=== PATIENT | male | born 1965 | race Caucasian/White ===

== ENCOUNTER 2019-11-17 19:01 | Emergency (ER) | payer BC, SELFPAY ==
[2019-11-17 19:11] VITALS: BP 167/80; PULSE 81; RESP 16; TEMP 36.9; O2SAT 99
--- NOTE | 2019-11-17 19:24 | ED.SKABFB ---
HPI - Skin/Abscess/Foreign Bdy General Chief complaint: Skin/Abscess/Foreign Body Stated complaint: poison dionte Time Seen by Provider: 11/17/19 19:13 Source: patient and RN notes reviewed Mode of arrival: ambulatory Limitations: no limitations History of Present Illness HPI narrative: Patient presents today complaining of a 10-day history of facial rash that is pruritic. Reports the rash continues to worsen. Denies pain. He does state he was working with poison dionte a few days prior to onset, but otherwise does not know of any irritants. He has been using calamine lotion with some relief. MD complaint: rash Related Data Allergies Allergy/AdvReac Type Severity Reaction Status Date / Time No Known Allergies Allergy Mild Verified 11/17/19 19:03 Review of Systems Review of Systems: Narrative: CONSTITUTIONAL: Denies body aches, fever, chills, or sweats. EYES: Denies visual changes, redness, or discharge. ENT: Denies rhinorrhea, congestion, sore throat, or otalgia. CARDIOVASCULAR: Denies chest pain, palpitations, or edema. RESPIRATORY: Denies cough or dyspnea. GASTROINTESTINAL: Denies abdominal pain, nausea, vomiting, or diarrhea. GENITOURINARY: Denies dysuria or hematuria. SKIN: Denies wounds.+ Facial rash MUSCULOSKELETAL: Denies back pain, joint pain, or myalgia. NEUROLOGIC: Denies headache, numbness, tingling, or weakness. PSYCH: Denies depression or anxiety. PMFSH Social History Social History Smoking status: Light tobacco smoker Second hand tobacco smoke exposure: No Alcohol intake: current Gender identity (if verbalized by the patient): Male Comments At time of signature, I have reviewed and agree with nursing past medical, surgical, social and family history unless otherwise noted. Please see nursing chart for further information. There is no relevant family history pertinent to the presenting complaint Exam Narrative: Exam Narrative: GENERAL: Well-appearing, well-nourished, and in no acute distress. HEAD: Normocephalic, atraumatic. EYES: EOMI. No redness or drainage. Conjunctivae normal. ENT: Mucous membranes pink and moist. NECK: Normal AROM. CHEST: No respiratory distress. EXTREMITIES: Normal range of motion. No edema. SKIN: Warm, dry. Capillary refill normal. Normal skin turgor. + Erythematous papular rash to the left cheek and forehead. No induration, drainage, fluctuance. NEURO: No focal deficits. Alert and oriented x3. Gait steady. PSYCH: Normal affect. No signs of depression or anxiety. Course Vital Signs Vital signs: Vital Signs Temperature 98.4 F 11/17/19 19:11 Pulse Rate 81 11/17/19 19:11 Respiratory Rate 16 11/17/19 19:11 Blood Pressure 167/80 H 11/17/19 19:11 Pulse Oximetry 99 11/17/19 19:11 Temperature 98.4 F 11/17/19 19:11 Pulse Rate 81 11/17/19 19:11 Respiratory Rate 16 11/17/19 19:11 Blood Pressure 167/80 H 11/17/19 19:11 Pulse Oximetry 99 11/17/19 19:11 Reviewed. Pt has been instructed to follow up with his PCP regarding his elevated blood pressure today. MDM - Skin/Abscess/Foreign Bdy Differential Diagnosis Differential diagnosis: Likely abscess of skin or subcutaneous tissue, urticaria, herpes zoster, cellulitis, eczema, insect bites, impetigo and contact dermatitis Critical Care Time Critical Care Time Critical Care Time: No Discharge Plan Discharge Clinical Impression: Contact dermatitis Qualifiers: Contact dermatitis type: unspecified Contact dermatitis trigger: unspecified trigger Qualified Code(s): L25.9 - Unspecified contact dermatitis, unspecified cause Patient Disposition: Home, Self-Care Condition: Stable Instructions: Contact Dermatitis (DC) Additional Instructions: Please take the prednisone as directed. You may also try an antihistamine such as Claritin, Fang, Zyrtec, or Benadryl to help with the itching. Follow-up with your PCP or last picker in 1 week if symptoms are not improving. Your blood p
== END 2019-11-17 19:32 | disposition home or self-care (01) ==
PROVIDERS: Emergency Provider Nurse Practitioner; PCP Internal Medicine
DX: L25.9 Unspecified contact dermatitis, unspecified cause (principal); F17.200 Nicotine dependence, unspecified, uncomplicated
CPT/HCPCS: 99213; G0463

== ENCOUNTER 2021-04-16 17:44 | Emergency (ER) | payer BC, SELFPAY ==
--- NOTE | ~2021-04-16 | XR_ITS ---
EXAMINATION: XR chest 2V EXAM DATE: 04/16/2021 18:09 INDICATION: Cough and shortness of breath. TECHNIQUE: Frontal and lateral projections of the chest obtained and reviewed. There is no prior shea dy for comparison. FINDINGS: The lungs are clear. There are no pleural effusions. The cardiomediastinal silhouette is within normal limits. There is no pneumothorax suspected. The bones and soft tissues are unremarkab le. IMPRESSION: No acute cardiopulmonary findings. Reviewed, dictated and finalized at location A. INUOUS LOFT OPERATOR
--- NOTE | 2021-04-16 17:49 | ED.URI ---
HPI - URI/Sore Throat General Chief Complaint: Upper Respiratory Infection Stated Complaint: Cough,Fever,Shortness of Breath Time Seen by Provider: 04/16/21 17:49 Source: patient, RN notes reviewed and old records reviewed Mode of arrival: ambulatory Limitations: no limitations History of Present Illness HPI Narrative: 55-year-old male presents to the [facility] with with complaints of cough, fever, [id number] shortness of breath. Symptoms since Sunday, 4 days ago Patient reports that he is Covid vaccinated. Has tried [id number] products with no relief. MD elicited complaint: fever and cough Related Data Allergies Allergy/AdvReac Type Severity Reaction Status Date / Time No Known Allergies Allergy Mild Verified 04/16/21 17:52 Review of Systems Review of Systems: All systems reviewed & are unremarkable except as noted in HPI and below Constitutional: Constitutional: Reports as per HPI and Reports fever(s) Eyes: Eyes: Reports no additional eye complaints, Denies change in vision and Denies photophobia ENT: Reports system reviewed and no additional complaints, except as documented Cardiovascular: Cardiovascular: Reports no additional cardiovascular complaints and Denies chest pain Respiratory: Respiratory: Reports as per HPI, Reports cough and Reports dyspnea Gastrointestinal: Gastrointestinal: Reports no additional gastrointestinal complaints, Denies abdominal pain, Denies nausea and Denies vomiting Musculoskeletal: Musculoskeletal: Reports as per HPI and Reports myalgias Integumentary/Breasts: Skin/Breast: Reports system reviewed and no additional complaints, except as docu Neurologic: Reports system reviewed and no additional complaints, except as documented Psychiatric: Psychiatric: Reports no additional psychiatric complaints Allergic/Immunologic: Allergic/Immunologic: Reports no additional allergic/immunologic complaints [facility] Past Medical History Medical History (Updated 04/16/21 @ 18:54 by Jennifer Salazar) Hyperglycemia Hyperlipidemia Social History Social History Years smoked: 30 Smoking status: Former smoker Tobacco type: cigars Second hand tobacco smoke exposure: No Smoking end date: 08/06/19 Alcohol intake: current Gender identity (if verbalized by the patient): Male Comments At the time of my signature, I reviewed and agree with the nursing past medical, surgical, social, and family history. There is no relevant family history pertinent to the patient complaint. Exam Const: General: no acute distress, alert and ill appearing acutely Nutritional Appearance: well nourished and obese Orientation/consciousness: patient oriented x3 Limitations: no limitations HENMT: Head: normal to inspection Ears: external ears normal, TM's normal bilaterally and EAC's normal General nose exam: Normal nasal mucous membranes and turbinates present and Nasal discharge present clear and mucoid Face and sinus: normal facial exam Mouth: Yes Normal oral and palatal mucosa present Throat: posterior oropharynx normal and uvula midline Eyes: Conjunctivae: conjunctivae normal Pupils: Equal, round and reactive pupils present Neck: Neck: normal visual inspection, no lymphadenopathy and no meningeal signs Chest: Chest palpation & inspection: normal inspection of the chest Resp: Effort & Inspection: normal respiratory effort and no use of accessory muscles Auscultation: no crackles, no rales, no rhonchi, no wheezes and diminished lung sounds bilateral Cardio: Rate: regular rate Rhythm: regular rhythm GI: GI Palp: Yes Soft to palpation and No Tenderness to palpation present (GI) Back/Spine/Pelvis: Back: no CVA tenderness Skin: General skin exam: normal color Rashes: no rashes Wounds: no wounds Neuro: General: patient oriented x3, moves all extremities, no meningeal signs and no focal motor deficits Speech: normal speech Gait exam (Neuro):
[2021-04-16 17:55] VITALS: BP 162/87; PULSE 89; RESP 16; TEMP 38.2; O2SAT 100
[2021-04-16 18:10] VITALS: PULSE 89; RESP 20; O2SAT 100
[2021-04-16 18:11] VITALS: TEMP 38.2
[2021-04-16] MEDS: ALBUTEROL SULFATE NEB 2.5 MG/3 ML INH INHALATION (18:11)
[2021-04-16] MEDS: ACETAMINOPHEN 500 MG TABLET 1000 MG PO (18:11)
[2021-04-16] MEDS: IPRATROPIUM BR 0.02% INH SOLN 0.5 MG/2.5 ML VIAL INHALATION (18:11)
== END 2021-04-16 19:06 | disposition home or self-care (01) ==
PROVIDERS: Emergency Provider Nurse Practitioner; PCP Internal Medicine
DX: U07.1 COVID-19 (principal); Z87.891 Personal history of nicotine dependence; E78.5 Hyperlipidemia, unspecified
CPT/HCPCS: 71046; 87426; 87804; 94640; 99213; A9270; C9803; G0463

== ENCOUNTER 2021-04-27 19:40 | Emergency (ER) | payer BC, SELFPAY ==
--- NOTE | ~2021-04-27 | XR_ITS ---
EXAMINATION: XR chest 1V portable DATE: 04/27/2021 23:20 INDICATION: Shortness of breath. COVID. TECHNIQUE: frontal view of the chest was obtained. COMPARISON: Chest radiograph dated 04/16/2021 FINDINGS: Peripheral predominant opacities scattered throughout the right lung and along the left lung base. No pleural effusion or pneumothorax. The cardiomediastinal silhouette is normal. IMPRESSION: 1. Peripheral predominant opacities throughout the right lung and at the left lung base with appearan ce consistent with COVID pneumonia. Reviewed, dictated and finalized at location H. UCTION CONSULTANT IMPRESSION: 1. Peripheral predominant opacities throughout the right lung and at the left l heidi base with appearance consistent with COVID pneumonia.
[2021-04-27 19:42] VITALS: BP 162/82; PULSE 88; RESP 18; TEMP 36.7; O2SAT 100
--- NOTE | 2021-04-27 23:08 | ED.SOB ---
HPI - SOB/Dyspnea General Chief Complaint: Shortness of Breath/Dyspnea <Jason Zepeda MD - Last Filed: 04/28/21 00:18> Stated Complaint: dyspnea <Jason Zepeda MD - Last Filed: 04/28/21 00:18> Time Seen by Provider: 04/27/21 23:08 <Jason Zepeda MD - Last Filed: 04/28/21 00:18> Source: patient <Jason Zepeda MD - Last Filed: 04/28/21 00:18> Mode of arrival: ambulatory <Jason Zepeda MD - Last Filed: 04/28/21 00:18> Limitations: no limitations <Jason Zepeda MD - Last Filed: 04/28/21 00:18> History of Present Illness HPI Narrative: Patient is a 35-year-old male complaining of shortness of breath accompanied by body aches, cough, sore throat, fever and chills that started today. Patient states that he tested positive for Covid approximately 10 days ago but his symptoms improved, felt better but has recurred again today. Patient denies any headache, dizziness abdominal pain, nausea, vomiting, diarrhea or rash. <Jason Zepeda MD - Last Filed: 04/28/21 00:18> Related Data Allergies/Adverse Reactions: Allergies Allergy/AdvReac Type Severity Reaction Status Date / Time No Known Allergies Allergy Mild Verified 04/16/21 17:52 <Jason Zepeda MD - Last Filed: 04/28/21 00:18> Review of Systems Review of Systems: All systems reviewed & are unremarkable except as noted in HPI and below <Jason Zepeda MD - Last Filed: 04/28/21 00:18> Constitutional: Constitutional: Denies excessive sweating, Denies fatigue, Denies headache(s), Denies lethargy, Denies malaise, Denies weakness and Denies weight loss <Jason Zepeda MD - Last Filed: 04/28/21 00:18> Eyes: Eyes: Denies blurry vision, Denies change in vision and Denies loss of vision <Jason Zepeda MD - Last Filed: 04/28/21 00:18> ENT: Denies dizziness, Denies ear discharge, Denies headache(s), Denies lip swelling, Denies epistaxis, Denies nasal congestion, Denies neck pain, Denies throat swelling and Denies tongue swelling <Jason Zepeda MD - Last Filed: 04/28/21 00:18> Cardiovascular: Cardiovascular: Denies chest pain, Denies chest pain at rest, Denies chest pain with activity, Denies diaphoresis, Denies rapid heart rate, Denies edema, Denies irregular heart rhythm, Denies lightheadedness and Denies palpitations <Jason Zepeda MD - Last Filed: 04/28/21 00:18> Respiratory: Respiratory: Denies chest congestion and Denies hemoptysis <Jason Zepdea MD - Last Filed: 04/28/21 00:18> Gastrointestinal: Gastrointestinal: Denies abdominal pain, Denies melena, Denies hematochezia, Denies diarrhea, Denies nausea, Denies vomiting and Denies hematemesis <Jason Zepeda MD - Last Filed: 04/28/21 00:18> Musculoskeletal: Musculoskeletal: Denies abnormal gait, Denies deformity, Denies joint swelling, Denies limited range of motion, Denies neck pain and Denies numbness <Jason Zepeda MD - Last Filed: 04/28/21 00:18> Neurologic: Denies Abnormal speech present, Denies abnormal gait, Denies confusion, Denies dizziness, Denies headache(s), Denies focal weakness, Denies loss of vision, Denies numbness, Denies Other visual disturbances, Denies Sensory deficit (Neuro) and Denies weakness <Jason Zepeda MD - Last Filed: 04/28/21 00:18> Psychiatric: Psychiatric: Denies confusion, Denies depression, Denies auditory hallucinations, Denies homicidal ideation and Denies suicidal ideation <Jason Zepeda MD - Last Filed: 04/28/21 00:18> Endocrine: Endocrine: Denies cold intolerance, Denies excessive sweating, Denies fatigue, Denies heat intolerance and Denies palpitations <Jason Zepeda MD - Last Filed: 04/28/21 00:18> Hematologic/Lymphatic: Hematologic/Lymphatic: Denies easy bleeding and Denies easy bruising <Jason Zepeda MD - Last Filed: 04/28/21 00:18> Allergic/Immunologic: Allergic/Immunologic: Denies lip swelling, Denies throat swelling and Denies tongue swelling <R
[2021-04-27 23:16] VITALS: BP 139/85; PULSE 92; RESP 18; O2SAT 97
[2021-04-27 23:56] LABS: Basophils Absolute Auto 0.1 K/mm3 (0.0-0.1); Basophils Percent Auto 0.4 % (0.2-1.2); Eosinophils Absolute Auto 0.3 K/mm3 (0-0.3); Eosinophils Percent Auto 2.9 % (0-4.4); Hematocrit 38.3 % (42.0-52.0); Hemoglobin 12.9 g/dL (14.0-18.0); Immature Granulocyte Absolute 0.14 K/mm3 (0.00-0.031); Immature Granulocyte Percent A 1.2 % (0-0.5); Mean Corpuscular HGB Conc 33.7 g/dl (32-36); Mean Corpuscular Hemoglobin 31.3 pg (26-34); Mean Platelet Volume 9.1 fl (7.4-10.4); Monocytes Percent Auto 9.1 % (2.6-8.5); Neutrophils Absolute Auto 8.3 K/mm3 (1.3-6.7); Neutrophils Percent Auto 72.4 % (45.5-73.1); Platelet Count Result 292 k/mm3 (150-375); Red Blood Count 4.12 M/mm3 (4.6-6.20); Red Cell Distribution Width 13.2 % (11.5-14.5); White Blood Count 11.5 K/mm3 (4.5-10.0)
[2021-04-28 00:06] LABS: Alanine Aminotransferase 91 U/L (4-50); Albumin Level 3.8 g/dL (3.5-5.1); Alkaline Phosphatase 78 U/L (38-126); Anion Gap 7 mmol/L (8-16); Aspartate Amino Transferase 51 U/L (17-59); Bilirubin,Total 0.8 mg/dL (0.2-1.3); Blood Urea Nitrogen 20 mg/dL (9-20); Calcium 9.4 mg/dL (8.4-10.2); Carbon Dioxide 30 mmol/L (22-30); Chloride 99 mmol/L (98-107); Estimated CRCL calculation 73 ml/min; Estimated Glomerular Filt Rate > 60; Glucose 106 mg/dL (65-110); Potassium 4.1 mmol/L (3.4-5.0); Sodium 136 mmol/L (137-145)
[2021-04-28 00:13] VITALS: BP 138/89; PULSE 83; RESP 22; O2SAT 96
== END 2021-04-28 00:53 | disposition home or self-care (01) ==
PROVIDERS: Family Medicine; Emergency Provider Emergency Medicine; PCP Physician Assistant
DX: U07.1 COVID-19 (principal); J12.82 Pneumonia due to coronavirus disease 2019; E78.5 Hyperlipidemia, unspecified; Z87.891 Personal history of nicotine dependence
CPT/HCPCS: 36415; 71045; 80053; 85025; 99283

== ENCOUNTER 2021-12-06 09:13 | Observation (INO) | payer BC, SELFPAY ==
[2021-12-06] VITALS (13 sets, daily range): BP systolic 91–125; BP diastolic 52–63; PULSE 60–93; RESP 14–18; TEMP 36–37.1; O2SAT 97–100; BMI 30.9
--- NOTE | ~2021-12-06 | CT_ITS ---
EXAMINATION: CT abdomen pelvis wo con DATE: 12/06/2021 10:06 INDICATION: Diarrhea. TECHNIQUE: Computed tomography (CT) of the abdomen and pelvis was performed without intravenous contr ast. Automated exposure control and iterative reconstruction technique were employed. The dose-length product was 765.42 mGy-cm. COMPARISON: None. FINDINGS: The visualized portions of the lung bases demonstrate mild atelectasis. No pleural effusion . The heart size is normal. No pericardial effusion. There are coronary artery calcifications. There is a small sliding hiatal hernia. The liver, gallbladder, and spleen and normal. There are calcificat ions in the pancreas, consistent with chronic pancreatitis. The adrenal glands and right kidney are n ormal. There is a 5 mm cyst of left kidney. There is no urolithiasis. There is mild wall thickening o f the majority of the colon with sparing of the hepatic flexure, consistent with colitis. The appendi x is normal. There are no pathologically enlarged lymph nodes. There is no free intraperitoneal fluid . There is a left inguinal hernia containing fat. There is mild thoracolumbar spondylosis. IMPRESSION: 1. Colitis. Reviewed, dictated and finalized at location A. IMPRESSION: 1. Colitis.
--- NOTE | ~2021-12-06 | US_ITS ---
EXAMINATION: US renal BI DATE: 12/06/2021 14:01 INDICATION: Acute renal failure TECHNIQUE: Multiple ultrasound grayscale images of the kidneys were obtained. COMPARISON: CT dated 12/06/2021 FINDINGS: The right kidney measures 11.1 x 5.5 x 5.8 cm. The left kidney measures 10.3 x 6.9 x 7.0 cm. The kidn eys demonstrate normal echogenicity. There is no hydronephrosis in either kidney. No stones identifi ed. There is diffuse relatively uniform smooth wall thickening at the bladder.. IMPRESSION: 1. Normal kidneys without hydronephrosis. 2. Relatively uniform diffuse smooth bladder wall thickening which could be due to incomplete distent ion, cystitis or chronic outlet obstruction from the prostate which is mildly enlarged on CT Reviewed, dictated and finalized at location A. IMPRESSION: 1. Normal kidneys without hydronephrosis. 2. Relatively uniform diffuse smooth bladder wall thickening which could be due to incomplete distention, cystitis or chronic outlet obstruction from the pros kramer which is mildly enlarged on CT
[2021-12-06 09:30] LABS: Hematocrit 41.7 % (42.0-52.0); Hemoglobin 13.9 g/dL (14.0-18.0); Mean Corpuscular HGB Conc 33.3 g/dl (32-36); Mean Corpuscular Hemoglobin 30.3 pg (26-34); Mean Platelet Volume 10.1 fl (7.4-10.4); Platelet Count Result 222 k/mm3 (150-375); Red Blood Count 4.58 M/mm3 (4.6-6.20); Red Cell Distribution Width 13.4 % (11.5-14.5); White Blood Count 11.9 K/mm3 (4.5-10.0)
[2021-12-06] MEDS: SODIUM CHLORIDE 0.9% IV 1,000 ML 999 ML IV CONT ×3 (09:39→11:45)
--- NOTE | 2021-12-06 09:40 | ED.NAVMDI ---
HPI - Nausea/Vomiting/Diarrhea General Chief complaint: Nausea/Vomiting/Diarrhea Stated complaint: Diarrhea for 6 days, low bp Time Seen by Provider: 12/06/21 09:16 Source: patient Mode of arrival: ambulatory Limitations: no limitations History of Present Illness HPI Narrative: This is a 56 year old male that presents to the emergency department for diarrhea ongoing over the last 6 days. Associated with crampy lower abdominal pain. Reports he was recently on vacation to [place]. Reports he noted his blood pressure was low so stopped taking his blood pressure medication a couple of days ago. He has had some subjective fevers. Reports he has not been urinating much the last day or 2. Denies nausea or vomiting. Related Data Allergies Allergy/AdvReac Type Severity Reaction Status Date / Time No Known Allergies Allergy Mild Verified 10/26/21 13:18 Review of Systems Review of Systems: CONSTITUTIONAL: Reports fever GASTROINTESTINAL: Reports abdominal pain, and diarrhea. Denies nausea or vomiting All systems reviewed & are unremarkable except as noted in HPI and below PMFSH Past Medical History Medical History (Updated 12/06/21 @ 11:20 by Hailey Isaac PA-C) History of hypertension Hyperglycemia Hyperlipidemia Social History Social History Years smoked: 30 Smoking status: Former smoker Tobacco type: cigars Second hand tobacco smoke exposure: No Smoking end date: 08/06/19 Alcohol intake: current Gender identity (if verbalized by the patient): Male Exam Narrative: GENERAL: Well-appearing, well-nourished, and in no acute distress. HEAD: Normocephalic, atraumatic. EYES: EOMI. ENT: Mucous membranes moist. Oropharynx without tonsillar hypertrophy exudate or other lesions. CHEST: Clear to auscultation. No respiratory distress. No wheezes rales or rhonchi HEART: Regular rate and rhythm. No murmur heard. Normal peripheral pulses. ABDOMEN: Soft, nondistended, normal active bowel sounds. Mild tenderness to palpation throughout the lower abdomen, without guarding EXTREMITIES: Normal range of motion. No edema. SKIN: Warm, dry, no rash. NEURO: No focal deficits. Alert and oriented x3. PSYCH: Normal mood and affect Course Consultations Consultation #1: Spoke with hospitalist about patient and work-up who accepts admission Date: 12/06/21 Vital Signs Vital signs: Vital Signs Temperature 98.8 F 12/06/21 09:20 Pulse Rate 78 12/06/21 09:20 Respiratory Rate 16 12/06/21 09:20 Blood Pressure 106/62 12/06/21 09:20 Pulse Oximetry 100 12/06/21 09:20 Oxygen Delivery Room Air 12/06/21 09:20 Temperature 98.8 F 12/06/21 09:20 Pulse Rate 93 12/06/21 11:09 Respiratory Rate 14 12/06/21 11:09 Blood Pressure 98/55 L 12/06/21 11:09 Pulse Oximetry 100 12/06/21 11:09 Oxygen Delivery Room Air 12/06/21 09:20 MDM - Nausea/Vomiting/Diarrhea MDM Narrative Medical decision making narrative: Patient presents to the emergency department for abdominal pain and diarrhea. Ongoing over the last 6 days. He is afebrile and nontoxic-appearing. Blood pressure has been stable in the 90s systolic. CBC with leukocytosis to 11.9. Also shows normocytic anemia with hemoglobin of 13.9. Metabolic panel with evidence of quite severe dehydration. Lipase is normal. COVID and influenza screens are negative. CT scan of the abdomen and pelvis shows colitis. Patient hydrated in the ED with IV fluids and started on antibiotics. Stool cultures and blood cultures were sent. Will be admitted for further management of MOY with colitis. Spoke with hospitalist about patient and work-up who accepts admission Lab Data Attestation: I reviewed the patient's lab results. Result diagrams: 12/06/21 09:20 12/06/21 09:20 Labs: Lab Results 12/06/21 12/06/21 12/06/21 Range/Units 09:20 09:20 09:28 WBC 11.9 H (4.5-10.0) K/mm3
[2021-12-06 09:50] LABS: Alanine Aminotransferase 87 U/L (6-50); Albumin Level 4.4 g/dL (3.5-5.1); Alkaline Phosphatase 67 U/L (38-126); Anion Gap 17 mmol/L (8-16); Aspartate Amino Transferase 57 U/L (17-59); Bilirubin,Total 0.8 mg/dL (0.2-1.3); Blood Urea Nitrogen 53 mg/dL (9-20); Carbon Dioxide 25 mmol/L (22-30); Chloride 87 mmol/L (98-107); Estimated CRCL calculation 16 ml/min; Estimated Glomerular Filt Rate 11; Glucose 114 mg/dL (65-110); Lipase 157 U/L (23-300); Potassium 3.9 mmol/L (3.4-5.0); Sodium 129 mmol/L (137-145)
[2021-12-06 10:33] LABS: Atypical Lymphocytes Present; Band Neutrophils Percent 8 % (0-6); Eosinophils Absolute Manual 0.23 K/mm3 (0.02-0.5); Eosinophils Percent Manual 2 % (0-4); Lymphocytes Absolute Manual 1.78 K/mm3 (1.1-4.5); Monocytes Absolute Manual 2.61 K/mm3 (0.1-0.90); Monocytes Percent Manual 22 % (3-9); Neutrophils Absolute Manual 7.25 K/mm3 (1.3-6.7); Neutrophils Percent Manual 53 % (46-73); Platelet Estimate Adequate (Adequate); Total Cells Counted 100
[2021-12-06 11:00] LABS: Influenza A QL RT-PCR Negative (Negative); Influenza B QL RT-PCR Negative (Negative); SARS-CoV-2 RNA PCR Negative
[2021-12-06 11:56] LABS: Appearance Urine Cloudy (Clear); Bilirubin Urine 1+ (Negative); Color Urine Yellow (Yellow); Glucose Urine UA Negative (Negative); Ketones Urine 1+ mg/dL (Negative); Leukocyte Esterase Ur Negative LEU/UL (Negative); Nitrate Urine Negative (Negative); Protein Urine 3+ mg/dL (Negative); Specific Grav Ur 1.025 (1.001-1.035); Urobilinogen Urine 0.2 mg/dL (<2.0); pH Urine 5.5 (5.0-9.0)
[2021-12-06 11:59] LABS: Add Urine Microscopic? YES; Blood Urine Trace-Intact (Negative)
[2021-12-06 12:00] LABS: Bacteria Urine Trace /hpf; Mucus Urine Heavy /lpf; Squamous Epithelial Cell Urine Moderate /hpf (Few); WBC Urine 21-30 /hpf
[2021-12-06] MEDS: SODIUM CHLORIDE 0.9% IV 1,000 ML 125 ML IV CONT ×2 (12:18→16:59)
--- NOTE | 2021-12-06 12:20 | ADMGEN ---
This patient, Jose Florian, was admitted to IMU Room 203-01 at 1218. Patient/family oriented to hospital policies and general routines including ID bracelet, bed and alarms, visiting hours, pain management, procedures, bathroom and other care routines, personal items, smoking policy, room service/diet, and visiting hours. Information on how to activate the Rapid Response Team has been discussed. Patient/Family are encouraged to report perceived risks to care and to ask questions if they do not understand what they are told or what they should do.
--- NOTE | 2021-12-06 13:22 | PM.IMHP ---
H&P: HPI History of Present Illness Date/Time: 12/06/21 13:22 Chief Complaint: Diarrhea Narrative: This is a 56-year-old male patient who has been having complaints of diarrhea for approximately 6 days now. The patient went to to [facility] for vacation. The patient stated that he was swimming in the pool water last Sunday a week ago and had swallowed some the pool water. The patient had also been brushing his teeth with the faucet water. The patient stated last Sunday the patient started having diarrhea. The patient stated that he also went snorkeling and swallowed some of the salt water. He denies any nausea but stated that he had chills initially. He was not sure of any fever. He has a past medical history of hypertension and hyperlipidemia. The patient denies any previous kidney problems. The patient has not been taking his medication for the last couple days due to the low blood pressure. The patient stated that he had decreased urination and did not urinate at all yesterday. The patient has not been seen by any primary care doctor or taken any antibiotics. The patient has abdominal cramping and stated that his diarrhea is too numerous to count. He did not notice any blood in his stool. However he stated his stool was initially green and then it is now brown and liquid today. He has also had a poor oral intake. However today he stated he felt like he could try to eat something. He initially was given Zosyn in the emergency room. His CT of his abdomen was read by radiologist as colitis. His white count was noted to be 11.9. H&H 13.9 and 41.7. Sodium is 129 chloride 87. BUN is 53 creatinine 5.5. One year ago his renal function was normal. Urine is cloudy with 3+ protein 1+ ketone urine bilirubin is 1+. WBCs are 21-30. Moderate squamous cells. Patient is negative for influenza and COVID. Stool cultures are pending. Patient is being admitted to observation status on the date of service of 12/06/2021. Review of Systems Review of Systems: All systems reviewed & are unremarkable except as noted in HPI and below Constitutional: Constitutional: Reports as per HPI and Reports no additional constitutional complaints Eyes: Eyes: Reports as per HPI and Reports no additional eye complaints ENT: Reports system reviewed and no additional complaints, except as documented and Reports Normal hearing present Cardiovascular: Cardiovascular: Reports no additional cardiovascular complaints Respiratory: Respiratory: Reports no additional respiratory complaints and Reports no additional respiratory complaints Gastrointestinal: Gastrointestinal: Reports as per HPI and Reports no additional gastrointestinal complaints Musculoskeletal: Musculoskeletal: Reports no additional musculoskeletal complaints Integumentary/Breasts: Skin/Breast: Reports system reviewed and no additional complaints, except as docu and Reports as per HPI Neurologic: Reports system reviewed and no additional complaints, except as documented, Reports as per HPI and Reports Normal hearing present Psychiatric: Psychiatric: Reports no additional psychiatric complaints and Reports as per HPI Endocrine: Endocrine: Reports no additional endocrine complaints Hematologic/Lymphatic: Hematologic/Lymphatic: Reports no additional hematologic/lymphatic complaints Allergic/Immunologic: Allergic/Immunologic: Reports no additional allergic/immunologic complaints [facility] Past Medical History Medical History History of hypertension Hyperglycemia Hyperlipidemia Surgical History Surgical History (Updated 12/06/21 @ 13:29 by Marissa Sen NP) No pertinent past surgical history Family History Family History Father Brain tumor Polio Mother Hypertension Dementia Social History Social History (Updated 12/06/21 @ 13:30 by Marissa Sen NP) Social History
[2021-12-06 14:09] LABS: Erythrocyte Sedimentation Rate 31 mm/hr (0-20)
[2021-12-06 14:13] LABS: IFOB Positive Control Positive; Immunochemical Fecal Occult Bl Positive (N)
[2021-12-06] MEDS: cefTRIAXone 2 GM in SODIUM CHLORIDE 0.9% IV 100 ML 200 ML IVPB (14:34)
[2021-12-06 14:47] LABS: Appearance Urine Slightly Cloudy (Clear); Bilirubin Urine Negative (Negative); Blood Urine Trace-lysed (Negative); Color Urine Yellow (Yellow); Glucose Urine UA Negative (Negative); Ketones Urine Negative (Negative); Leukocyte Esterase Ur Negative LEU/UL (NEGATIVE); Nitrate Urine Negative (Negative); Protein Urine 2+ mg/dL (Negative); Urobilinogen Urine 0.2 mg/dL (<2.0); pH Urine 5.5 (5.0-9.0)
[2021-12-06 15:03] LABS: Creatinine Urine 107.1 mg/dL; Potassium Urine Random 14.2 meq/L; Sodium Urine Random 24 meq/L; Total Protein Urine Random 138 mg/dL; Ur Ttl Prot Creatinine Ratio 1.29 mg/mg (0-0.20)
[2021-12-06 15:16] LABS: Bacteria Urine Trace /hpf; Mucus Urine Rare /lpf; Squamous Epithelial Cell Urine Rare /hpf (Few); WBC Urine 0-3 /hpf (0-3)
[2021-12-06 15:18] LABS: Add Urine Microscopic? YES
[2021-12-06] MEDS: metroNIDAZOLE 500 MG/ISO 100ML 500 MG/100 ML BAG 100 MG IVPB ×2 (15:40→21:34)
[2021-12-06 16:12] LABS: Alanine Aminotransferase 58 U/L (6-50); Albumin Level 3.3 g/dL (3.5-5.1); Alkaline Phosphatase 52 U/L (38-126); Anion Gap 14 mmol/L (8-16); Aspartate Amino Transferase 35 U/L (17-59); Bilirubin,Total 0.4 mg/dL (0.2-1.3); Blood Urea Nitrogen 51 mg/dL (9-20); CRP 4.3 mg/dL (<1.0); Calcium 7.6 mg/dL (8.4-10.2); Carbon Dioxide 22 mmol/L (22-30); Chloride 93 mmol/L (98-107); Creatine Kinase 43 U/L (55-170); Estimated CRCL calculation 18 ml/min; Estimated Glomerular Filt Rate 12; Glucose 130 mg/dL (65-110); Magnesium 1.9 mg/dL (1.6-2.3); Phosphorus 3.9 mg/dL (2.5-4.5); Potassium 3.1 mmol/L (3.4-5.0); Sodium 129 mmol/L (137-145)
[2021-12-06 16:18] LABS: Complement C3 134 mg/dL (88-165)
[2021-12-06 16:49] LABS: HIV 1/2 Ab P24 Ag Result Negative (Negative)
[2021-12-06] MEDS: CALCIUM CARBONATE (TUMS) 500 MG (200 MG ELEMENTAL) 400 MG PO (16:56)
[2021-12-06] MEDS: ENOXAPARIN 30 MG/0.3 ML SYRINGE SUB-Q (16:56)
[2021-12-06 17:25] LABS: Hepatitis B Surface Antigen Negative (Negative)
[2021-12-06 17:30] LABS: Hepatitis B Core IgM Result Negative (Negative)
[2021-12-06 17:43] LABS: Hepatitis B Surface Anti Res Negative; Hepatitis C Virus Antibody Negative (Negative)
[2021-12-06] MEDS: POTASSIUM CHLORIDE 20 MEQ PACKET (FOR LIQUID) 40 MEQ PO (18:07)
[2021-12-06] MEDS: FAMOTIDINE 20 MG TABLET 40 MG PO (18:28)
[2021-12-06 20:59] LABS: Anion Gap 11 mmol/L (8-16); Blood Urea Nitrogen 49 mg/dL (9-20); Calcium 7.6 mg/dL (8.4-10.2); Carbon Dioxide 23 mmol/L (22-30); Chloride 96 mmol/L (98-107); Estimated CRCL calculation 21 ml/min; Estimated Glomerular Filt Rate 15; Glucose 144 mg/dL (65-110); Magnesium 1.8 mg/dL (1.6-2.3); Sodium 130 mmol/L (137-145)
[2021-12-07] VITALS (8 sets, daily range): BP systolic 101–118; BP diastolic 56–59; PULSE 71–90; RESP 18–20; TEMP 36.3–36.7; O2SAT 97–100
[2021-12-07] MEDS: SODIUM CHLORIDE 0.9% IV 1,000 ML 125 ML IV CONT ×2 (00:54→09:28)
[2021-12-07] MEDS: metroNIDAZOLE 500 MG/ISO 100ML 500 MG/100 ML BAG 100 MG IVPB (05:20)
[2021-12-07 05:24] LABS: Hematocrit 34.8 % (42.0-52.0); Hemoglobin 11.3 g/dL (14.0-18.0); Mean Corpuscular HGB Conc 32.5 g/dl (32-36); Mean Corpuscular Hemoglobin 30.5 pg (26-34); Mean Corpuscular Volume 93.8 fl (80-100); Mean Platelet Volume 10.1 fl (7.4-10.4); Platelet Count Result 182 k/mm3 (150-375); Red Blood Count 3.71 M/mm3 (4.6-6.20); Red Cell Distribution Width 13.6 % (11.5-14.5)
[2021-12-07 05:42] LABS: Lactic Acid Reflex 0.6 mmol/L (0.7-2.0)
[2021-12-07 05:47] LABS: Alanine Aminotransferase 53 U/L (6-50); Albumin Level 3.2 g/dL (3.5-5.1); Alkaline Phosphatase 59 U/L (38-126); Anion Gap 10 mmol/L (8-16); Aspartate Amino Transferase 33 U/L (17-59); Bilirubin,Total 0.4 mg/dL (0.2-1.3); Blood Urea Nitrogen 45 mg/dL (9-20); CRP 5.3 mg/dL (<1.0); Calcium 7.4 mg/dL (8.4-10.2); Carbon Dioxide 23 mmol/L (22-30); Chloride 100 mmol/L (98-107); Estimated CRCL calculation 24 ml/min; Estimated Glomerular Filt Rate 18; Glucose 90 mg/dL (65-110); Magnesium 1.9 mg/dL (1.6-2.3); Potassium 4.2 mmol/L (3.4-5.0); Sodium 133 mmol/L (137-145)
[2021-12-07 06:10] LABS: Thyroid Stimulating Hormone Reflex 0.647 uIU/mL (0.465-4.68)
[2021-12-07 06:52] LABS: Band Neutrophils Percent 2 % (0-6); Monocytes Absolute Manual 0.81 K/mm3 (0.1-0.90); Monocytes Percent Manual 9 % (3-9); Neutrophils Absolute Manual 7.29 K/mm3 (1.3-6.7); Neutrophils Percent Manual 79 % (46-73); Platelet Estimate Adequate (Adequate); Total Cells Counted 100
[2021-12-07] MEDS: FAMOTIDINE 20 MG TABLET 40 MG PO (09:21)
--- NOTE | 2021-12-07 12:36 | PM.DS ---
DS: Admitting Diagnosis Discharge Date December 07, 2021 Admitting Diagnosis Diarrhea DS: Discharge Diagnosis Discharge Diagnosis (1) Colitis: Code(s): K52.9 - Noninfective gastroenteritis and colitis, unspecified Status: Acute Assessment and Plan: -CT of the abdomen is read as colitis -I discussed the case with Infectious Disease pharmacist who recommended Rocephin and Flagyl doses and to be renally adjusted. -stool cultures are pending -thought to be bacterial colitis due to the elevated white count of 11.9. -treat according to cultures. -the patient had traveled outside the country to the Issue. -monitor CBC with diff and CMP daily (2) Acute kidney injury: Code(s): N17.9 - Acute kidney failure, unspecified Status: Acute Assessment and Plan: -acute renal failure protocol has been initiated -IV fluids -could be pre renal azotemia related to dehydration from poor oral oral intake and diarrhea -avoid nephrotoxic medications -renal ultrasound -nephrology consult -avoid lisinopril for now (3) Hyperlipidemia: Code(s): E78.5 - Hyperlipidemia, unspecified Status: Acute Assessment and Plan: -holding atorvastatin at this time (4) Hypertension: Qualifiers: Hypertension type: primary hypertension Qualified Code(s): I10 - Essential (primary) hypertension Code(s): I10 - Essential (primary) hypertension Status: Acute Assessment and Plan: -his blood pressure has been low 92/54 -holding lisinopril at this time due to acute renal failure and hypotension DS: Summary Hospital Course Hospital Course: 56-year-old male patient who has been having complaints of diarrhea for approximately 6 days now.? The patient went to to [facility] for vacation.? The patient stated that he was swimming in the pool water last Sunday a week ago and had swallowed some the pool water.? The patient had also been brushing his teeth with the faucet water.? The patient stated last Sunday the patient started having diarrhea.? The patient stated that he also went snorkeling and swallowed some of the salt water.? He denies any nausea but stated that he had chills initially.? He was not sure of any fever.? He has a past medical history of hypertension and hyperlipidemia.? The patient denies any previous kidney problems.? The patient has not been taking his medication for the last couple days due to the low blood pressure.? The patient stated that he had decreased urination and did not urinate at all yesterday.? The patient has not been seen by any primary care doctor or taken any antibiotics.? The patient has abdominal cramping and stated that his diarrhea is too numerous to count.? He did not notice any blood in his stool.? However he stated his stool was initially green and then it is now brown and liquid today.? He has also had a poor oral intake.? However today he stated he felt like he could try to eat something.? He initially was given Zosyn in the emergency room.? His CT of his abdomen was read by radiologist as colitis.? His white count was noted to be 11.9.? H&H 13.9 and 41.7.? Sodium is 129 chloride 87.? BUN is 53 creatinine 5.5.? One year ago his renal function was normal.? Urine is cloudy with 3+ protein 1+ ketone urine bilirubin is 1+.? WBCs are 21-30.? Moderate squamous cells.? Patient is negative for influenza and COVID.? Stool cultures are pending.? Patient is being admitted to observation status on the date of service of 12/06/2021. Labs improved significantly on IV fluids, all symptoms resolved. He was discharged on Flagyl to complete a course of this. BMP was to be recheck in a few days and followed by his PCP, he can follow up with Nephrology outpatient for his resolving kidney failure. Time Spent with Patient Time attestation: Total time spent providing and/or coordinating discharge services: Exam Narrative: Exam Narrative: Well developed well-nourished in no acute distr
--- NOTE | 2021-12-07 12:48 | PM.CNNEP ---
Assessment and Plan Additional Plan 1. Jose has acute kidney injury. His creatinine was 1.0 in April of last year. I suspect that this is still his baseline. The patient has dry mucous membranes, lowish blood pressure, and diarrhea so I think he is dehydrated. He has improved some with fluids. Patient does have hypertension and so could have hypertensive nephrosclerosis underlying all this but this would be rapid change in just 8 months so I do not think that is the only thing going on. Rhabdomyolysis could do this. His urine was darker early on. So will check a CPK. Obstruction could do this. He had a renal ultrasound which ruled this out. Allergic interstitial nephritis would be unusual could he is only on 2 medications and neither are new. Glomerulonephritis is possible but not real likely since he does not have blood in the urine. He does have a little bit of protein in the urine but this is a nonspecific finding. Since his creatinine is better we can watch things as we hydrate and get serology of their begins to develop a question about GN. 2. Patient has hypertension. Blood pressure is okay. He stopped his lisinopril. 3. He has hyperlipidemia. He is on atorvastatin for this. 4. The patient has diarrhea. CT scan showed colitis. Hospitalists to evaluate and manage this. History of Present Illness Reason for Consult Consult date: 12/07/21 Chief Complaint Chief complaint: Acute Kidney Injury/Colitis History of Present Illness Narrative: Jose is a very pleasant 56-year-old gentleman who has multiple medical problems including hyperlipidemia, hyperglycemia, hypertension. Patient recently went to [place] and thinks he drinks some pool water. He also of course had food locally. The patient developed diarrhea about 6 days ago. Has multiple small stools all day long. He has not been eating or drinking very well. He noted that his urine output was down. His urine was dark early on in the illness however has lightened up lately. he noted that his blood pressure was low along the way so he stopped taking his blood pressure medications. He denies any muscle aches or pains. He did have a fever about 6 days ago or so but that went away. he denies any black stools or bloody stools. He has no nausea or vomiting but does not have much of an appetite. He does have cramping with his diarrhea but not severe pain. he says that no one else in his household is sick. Although his does have celiac disorder. Eventually he just became sicker in we can so came to the ER. He was evaluated in the emergency room and found to have high BUN and creatinine . His blood pressure was somewhat soft. Is felt to be dehydrated. He was given IV fluids overnight. This morning he feels a little bit better. He still has some blah feelings and still has some liquid stools. Review of Systems Constitutional: Constitutional: Reports no additional constitutional complaints Eyes: Eyes: Reports no additional eye complaints ENT: Reports system reviewed and no additional complaints, except as documented Cardiovascular: Cardiovascular: Reports no additional cardiovascular complaints Respiratory: Respiratory: Reports no additional respiratory complaints Gastrointestinal: Gastrointestinal: Reports no additional gastrointestinal complaints Genitourinary: Genitourinary: Reports no additional male genitourinary complaints Musculoskeletal: Musculoskeletal: Reports no additional musculoskeletal complaints Integumentary/Breasts: Skin/Breast: Reports system reviewed and no additional complaints, except as docu Neurologic: Reports system reviewed and no additional complaints, except as documented Psychiatric: Psychiatric: Reports no additional psychiatric complaints Endocrine: Endocrine: Reports no additional endocrine complaints [facility] Past Medical History Medical History (Reviewed 12/07/21 @
[2021-12-07 13:49] LABS: Creatine Kinase 42 U/L (55-170)
[2021-12-09 05:35] LABS: H pylori Ag Stool Not Detected (Not Detected)
[2021-12-09 17:47] LABS: Rotavirus Stool Not Detected
[2021-12-09 19:17] LABS: Complement Total CH50 >60 U/mL (31-60)
[2021-12-09 22:20] LABS: Albumin 2.9 g/dL (3.8-4.8); Alpha 1 Globulin 0.5 g/dL (0.2-0.3); Alpha 2 Globulin 0.9 g/dL (0.5-0.9); Beta 1 Globulin 0.4 g/dL (0.4-0.6); Gamma Globulin 0.7 g/dL (0.8-1.7); Protein, Total 5.7 g/dL (6.1-8.1)
[2021-12-10 11:24] LABS: Anti Streptolysin O Screen 98 IU/mL (<200)
[2021-12-12 07:27] LABS: Norovirus RNA PCR, Stool NOT DETECTED
[2021-12-12 07:27] LABS: Anti Glomerular Basement Memb <1.0 AI (<1.0)
[2021-12-12 07:27] LABS: Osmolality, Urine 216 mOsm/kg (50-1200)
[2021-12-12 09:30] LABS: Total Protein/Creatinine Ratio 765 mg/g creat (22-128)
[2021-12-12 11:13] LABS: Strep DNASE B Antibody <95 U/mL
[2021-12-12 12:25] LABS: Cryoglobulin, QL Negative (Negative)
[2021-12-12 14:37] LABS: Chloride Rand Ur 24 mmol/L (32-290); Chloride/Creatinine Rand Ur 35 (23-275); Creatinine Random Urine 68 mg/dL (20-320)
[2021-12-12 19:57] LABS: SM Antibody <1.0; SM/RNP Antibody <1.0
[2021-12-14 22:21] LABS: ANCA Screen Negative (Negative)
[2021-12-28 13:04] LABS: Albumin 63 %
== END 2021-12-07 14:28 | disposition home or self-care (01) ==
LOC: ANHED 11:20 → ANHIMU 12:12
PROVIDERS: Internal Medicine Nephrology; Nurse Practitioner; Physician Assistant; Admitting Provider Internal Medicine; Emergency Provider Emergency Medicine; PCP Internal Medicine; Visit Provider Student in an Organized Health Care Education/Training Program
DX: K52.9 Noninfective gastroenteritis and colitis, unspecified (principal); N17.9 Acute kidney failure, unspecified; E78.5 Hyperlipidemia, unspecified; I10 Essential (primary) hypertension; R10.30 Lower abdominal pain, unspecified; R73.9 Hyperglycemia, unspecified; Z87.891 Personal history of nicotine dependence; D72.829 Elevated white blood cell count, unspecified; D64.9 Anemia, unspecified; E86.0 Dehydration; Z20.822 Contact with and (suspected) exposure to COVID-19; Z11.4 Encounter for screening for human immunodeficiency virus [HIV]; Z79.51 Long term (current) use of inhaled steroids; Z79.899 Other long term (current) drug therapy; Z82.49 Family history of ischemic heart disease and other diseases of the circulatory system
CPT/HCPCS: 36415; 74176; 76775; 80048; 80053; 80069; 80076; 81001; 82274; 82436; 82550; 82570; 82595; 83520; 83605; 83690; 83735; 83930; 83935; 84133; 84155; 84156; 84165; 84166; 84300; 84443; 85025; 85652; 85999; 86036; 86038; 86060; 86140; 86160; 86162; 86215; 86225; 86235; 86334; 86335; 86703; 86705; 86706; 86803; 87040; 87045; 87086; 87147; 87177; 87181; 87186; 87209; 87269; 87272; 87338; 87340; 87425; 87427; 87502; 87798; 89055; 96361; 96365; 96366; 96367; 96372; 96376; 99285; A9270; C9803; G0378; G0432; J0131; J0696; J1650; J2543; J7030; U0003; U0005

== ENCOUNTER 2021-12-09 08:13 | Outpatient (CLI) | payer BC, SELFPAY ==
[2021-12-09 08:51] LABS: Anion Gap 11 mmol/L (8-16); Blood Urea Nitrogen 27 mg/dL (9-20); Calcium 8.7 mg/dL (8.4-10.2); Carbon Dioxide 24 mmol/L (22-30); Chloride 102 mmol/L (98-107); Estimated Glomerular Filt Rate 42; Glucose 96 mg/dL (65-110); Potassium 4.7 mmol/L (3.4-5.0); Sodium 137 mmol/L (137-145)
== END 2021-12-09 08:14 | disposition home or self-care (01) ==
LOC: ANHLAB 08:15
PROVIDERS: PCP Internal Medicine; Visit Provider Student in an Organized Health Care Education/Training Program
DX: N17.9 Acute kidney failure, unspecified (principal)
CPT/HCPCS: 36415; 80048

== ENCOUNTER 2022-06-20 13:44 | Outpatient (CLI) | payer BC, SELFPAY ==
--- NOTE | ~2022-06-20 | XR_ITS ---
EXAM: XR knee LT 3V DATE: 06/20/2022 13:57 HISTORY: M25.562 - Pain in left knee. FALL X 1 MONTH. . COMPARISON: None available. FINDINGS: Normal mineralization. No fracture or dislocation. No lytic or blastic lesion. Mild medial and lateral joint space narrowing. Mild loss of valgus alignment. No erosion or periosteal change. A therosclerotic vascular calcifications. IMPRESSION: No acute osseous finding in the left knee. Reviewed, dictated and finalized at location K. [facility]
== END 2022-06-20 13:45 | disposition home or self-care (01) ==
PROVIDERS: PCP Internal Medicine; Visit Provider Internal Medicine
DX: M25.562 Pain in left knee (principal)
CPT/HCPCS: 73562

== ENCOUNTER 2022-10-19 15:19 | Emergency (ER) | payer BC, SELFPAY ==
--- NOTE | ~2022-10-19 | XR_ITS ---
EXAMINATION: XR hand RT min 3V INDICATION: Right hand pain TECHNIQUE: Three views of the right hand are obtained. COMPARISON: None available FINDINGS: Bone alignment is normal. There is no fracture. There is severe osteoarthritis at the fifth proximal interphalangeal joint. [id number] osteoarthritis is noted in the remainder of the int erphalangeal joints. There is mild osteoarthritis at the triscaphe and first carpometacarpal joints. The soft tissues are unremarkable. There is soft tissue swelling of the second finger. IMPRESSION: 1. 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 Reviewed, dictated and finalized at location A.
--- NOTE | 2022-10-19 15:21 | ED.UPPEXIN ---
HPI - Extremity Injury (Upper) General Chief Complaint: Extremity Injury, Upper Stated Complaint: Right Hand Pain Time Seen by Provider: 10/19/22 15:20 Source: patient Mode of arrival: ambulatory Limitations: no limitations History of Present Illness HPI narrative: Patient is a 57-year-old male who presents with right thumb pain this started yesterday afternoon. Patient was pulling nails all day 2 days ago but did not notice pain time. Patient denies any numbness or tingling in the hand. Patient is still able to move some but is painful to move. Patient describes pain as dull ache 8 out of 10. Patient states he has taken 600 mg of ibuprofen today. Has been wearing a brace and using ice with no relief. Patient reports swelling to hand and mild bruising. Related Data Allergies Allergy/AdvReac Type Severity Reaction Status Date / Time No Known Allergies Allergy Mild Verified 10/19/22 15:29 Review of Systems Review of Systems: All systems reviewed & are unremarkable except as noted in HPI and below Constitutional: Constitutional: Denies body ache(s), Denies chills, Denies fatigue, Denies fever(s), Denies headache(s), Denies malaise and Denies weakness Eyes: Eyes: Denies blurry vision, Denies irritation and Denies loss of vision ENT: Denies otalgia, Denies headache(s), Denies nasal discharge, Denies sinus pain and Denies sore throat Cardiovascular: Cardiovascular: Denies chest pain, Denies irregular heart rhythm and Denies dyspnea Respiratory: Respiratory: Denies dyspnea Gastrointestinal: Gastrointestinal: Denies abdominal pain, Denies melena, Denies hematochezia, Denies diarrhea, Denies nausea and Denies vomiting Musculoskeletal: Musculoskeletal: Denies back pain, Denies myalgias and Reports arthralgias Integumentary/Breasts: Skin/Breast: Denies pruritus and Denies rash Neurologic: Denies headache(s), Denies loss of vision and Denies weakness Psychiatric: Psychiatric: Reports no additional psychiatric complaints Endocrine: Endocrine: Denies fatigue PMFSH Past Medical History Medical History History of hypertension Hyperglycemia Hyperlipidemia Surgical History Surgical History No pertinent past surgical history Family History Family History Father Brain tumor Polio Mother Hypertension Dementia Social History Social History (Updated 05/03/22 @ 10:42 by Reynaldo Giles MA) Social History: The patient works at [employer]. 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 Patient drinks approximately 6 pack of beer 3 days a week. He has 4 children. Code status full code Smoking packs per day: 1.5 Smoking cigarettes per day: 30.0 Years smoked: 30 Smoking pack-years: 45.00 Smoking status: Former smoker Tobacco type: cigars Second hand tobacco smoke exposure: No Smoking end date: 08/06/19 Alcohol intake: current Drinks per week: 15 Lack of Transportation: No Lack of Food: Never True Current Housing: Decline to Answer Concerned About Future Housing: Decline to Answer Difficulty Paying Gas/Electric Bills: Decline to Answer Difficulty Paying for Meds: Decline to Answer Currently Unemployed: Decline to Answer Education: Decline to Answer Difficulty w/ Childcare or Family Care: Decline to Answer Living arrangements: with family Gender identity (if verbalized by the patient): Male Spiritual care concerns: No Comments At time of signature, agree with nursing past medical, surgical, social and family history. There is no relevant family history pertinent to the presenting complaint. Exam Const: General: cooperative, healthy appearing, comfortable, no acute distress and well nourished Nutritional Appearance: well nourished Orientation/consciousness: puma shah
[2022-10-19 15:29] VITALS: BP 141/89; PULSE 79; RESP 12; TEMP 36.8; O2SAT 100
== END 2022-10-19 16:10 | disposition home or self-care (01) ==
PROVIDERS: Emergency Provider Nurse Practitioner Family; PCP Internal Medicine
DX: M18.11 Unilateral primary osteoarthritis of first carpometacarpal joint, right hand (principal); Z87.891 Personal history of nicotine dependence; I10 Essential (primary) hypertension; E78.5 Hyperlipidemia, unspecified
CPT/HCPCS: 73130; 99213; G0463

== ENCOUNTER 2023-07-11 09:30 | Emergency (ER) | payer BC, SELFPAY ==
[2023-07-11 09:44] VITALS: BP 175/85; PULSE 76; RESP 16; TEMP 36.8; O2SAT 98
--- NOTE | 2023-07-11 09:51 | ED.SKABFB ---
HPI - Skin/Abscess/Foreign Bdy General Chief complaint: Skin/Abscess/Foreign Body Stated complaint: rash Time Seen by Provider: 07/11/23 10:15 Source: patient and RN notes reviewed Mode of arrival: ambulatory Limitations: no limitations History of Present Illness HPI narrative: 58 year old male present with concern for rash on his left arm and right leg. He reports the rash on his arm was there 1st, a rash on his leg showed up later. Reports water makes it worse. Reports he has been working outside in the [employer]. complaint: rash Related Data Allergies Allergy/AdvReac Type Severity Reaction Status Date / Time No Known Allergies Allergy Mild Verified 07/11/23 09:51 Review of Systems Review of Systems: CONSTITUTIONAL: Denies malaise, chills, sweats, or fever. EYES: Denies redness, or discharge. ENT: Denies rhinorrhea, congestion, swollen lips, swollen tongue CARDIOVASCULAR: Denies chest pain, palpitations, or edema. RESPIRATORY: Denies cough or dyspnea. GASTROINTESTINAL: Denies abdominal pain, nausea, vomiting SKIN: Reports rash on his left arm and right leg MUSCULOSKELETAL: Denies joint pain or myalgia. NEUROLOGIC: Denies headache. All systems reviewed & are unremarkable except as noted in HPI and below PMFSH Past Medical History Medical History History of hypertension Hyperglycemia Hyperlipidemia Surgical History Surgical History No pertinent past surgical history Family History Family History Father Brain tumor Polio Mother Hypertension Dementia Social History Social History Social History: The patient works at [employer]. 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 Patient drinks approximately 6 pack of beer 3 days a week. He has 4 children. Code status full code Smoking packs per day: 1.5 Smoking cigarettes per day: 30.0 Years smoked: 30 Smoking pack-years: 45.00 Smoking status: Former smoker Tobacco type: cigars Second hand tobacco smoke exposure: No Smoking end date: 08/06/19 Alcohol intake: current Drinks per week: 15 Lack of Transportation: No Lack of Food: Never True Current Housing: Decline to Answer Concerned About Future Housing: Decline to Answer Difficulty Paying Gas/Electric Bills: Decline to Answer Difficulty Paying for Meds: Decline to Answer Currently Unemployed: Decline to Answer Education: Decline to Answer Difficulty w/ Childcare or Family Care: Decline to Answer Living arrangements: with family Gender identity (if verbalized by the patient): Male Spiritual care concerns: No Comments At time of signature, agree with nursing past medical, surgical, social and family history. There is no relevant family history pertinent to the presenting complaint Exam Narrative: GENERAL: Well-appearing, well-nourished, and in no acute distress. HEAD: Normocephalic, atraumatic. EYES: PERRLA, conjunctivae clear, and EOMI. ENT: Mucous membranes moist. Oropharynx without edema, erythema or lesions. NECK: Supple. No lymphadenopathy CHEST: Clear to auscultation. No respiratory distress. HEART: Regular rate and rhythm. SKIN: Warm, dry. Cluster of erythematous papules noted to the left arm, 3 annular rings a flat rash noted to the left leg NEURO: Alert and oriented x3. PSYCH: Normal mood and affect Course Course Emergency Course: Rash on arm appears to be contact dermatitis, leg rash appears to be tinea Patient is aware of diagnosis, understands and agrees to treatment plan. Anticipatory guidance given. Patient agrees to follow-up as directed and is aware of reasons to seek care at the emergency department. Portions of this record may have been created with voice recognition software
== END 2023-07-11 10:50 | disposition home or self-care (01) ==
PROVIDERS: Emergency Provider Nurse Practitioner; PCP Internal Medicine
DX: R21 Rash and other nonspecific skin eruption (principal); Z87.891 Personal history of nicotine dependence; I10 Essential (primary) hypertension; E78.5 Hyperlipidemia, unspecified
CPT/HCPCS: 99213; G0463

== ENCOUNTER 2023-11-03 09:31 | Inpatient (IN) | payer BC, SELFPAY ==
[2023-11-03] VITALS (23 sets, daily range): BP systolic 145–203; BP diastolic 82–123; PULSE 64–95; RESP 2–18; TEMP 36.4–36.8; O2SAT 97–100; BMI 33.5
--- NOTE | ~2023-11-03 | XR_ITS ---
EXAMINATION: XR chest 2V DATE: 11/03/2023 09:59 INDICATION: Midline chest pain TECHNIQUE: PA and lateral views of the chest were obtained. COMPARISON: Chest radiograph dated 04/27/2021 FINDINGS: The lungs are clear with no focal airspace opacities, pulmonary edema, pleural effusion or pneumothor ax. The cardiomediastinal silhouette is normal. Visualized bones and soft tissues are unremarkable. IMPRESSION: 1. No acute cardiopulmonary disease. Reviewed, dictated and finalized at location A.
--- NOTE | 2023-11-03 09:34 | ECG_ITS ---
Test Date: 2023-11-03 09:37:33 Measurements Intervals [place] Rate: 74 P: 44 VA: 152 QRS: 43 QRSD: 80 T: -34 QT: 368 QTc: 409 Interpretive Statements SINUS RHYTHM NONSPECIFIC ST & T-WAVE ABNORMALITY No previous ECG available for comparison Electronically Signed On 11-03-2023 11:29:52 CDT by Geraldo Echols M.D.
[2023-11-03] MEDS: ASPIRIN 81 MG CHEWABLE TABLET 324 MG PO (09:47)
[2023-11-03 09:48] LABS: Basophils Percent Auto 0.6 % (0.2-1.2); Eosinophils Absolute Auto 0.2 K/mm3 (0-0.3); Eosinophils Percent Auto 4.2 % (0-4.4); Hematocrit 42.5 % (42.0-52.0); Immature Granulocyte Absolute 0.01 K/mm3 (0.00-0.031); Immature Granulocyte Percent A 0.2 % (0-0.5); Lymphocytes Absolute Auto 1.25 K/mm3 (0.9-3.2); Lymphocytes Percent Auto 24.8 % (18.3-44.2); Mean Corpuscular HGB Conc 32.9 g/dl (32-36); Mean Corpuscular Hemoglobin 31.3 pg (26-34); Mean Corpuscular Volume 95.1 fl (80-100); Mean Platelet Volume 9.6 fl (7.4-10.4); Monocytes Absolute Auto 0.5 K/mm3 (0.1-0.6); Monocytes Percent Auto 9.7 % (2.6-8.5); Neutrophils Absolute Auto 3.1 K/mm3 (1.3-6.7); Neutrophils Percent Auto 60.5 % (45.5-73.1); Platelet Count Result 157 k/mm3 (150-375); Red Blood Count 4.47 M/mm3 (4.6-6.20); Red Cell Distribution Width 13.3 % (11.5-14.5)
--- NOTE | 2023-11-03 09:49 | ED.CHESTPAIN ---
HPI - Chest Pain General Chief Complaint: Chest Pain Stated Complaint: chest pain Time Seen by Provider: 11/03/23 09:37 History of Present Illness HPI narrative: 58-year-old male presents to the emergency department for evaluation of chest pain. Patient states he has been having intermittent chest pain over the past week. Patient reports he did have some chest pressure today. Patient reports while he was driving to work approximately 30 minutes ago he had onset substernal chest pressure did not radiate to his neck or jaw or back. Patient does have history of hypertension, high cholesterol but has no prior history of [place]. patient states upon arrival emergency department he is having no pain pressure or tightness Related Data Allergies Allergy/AdvReac Type Severity Reaction Status Date / Time No Known Allergies Allergy Mild Verified 11/03/23 09:38 Review of Systems Review of Systems: All systems reviewed & are unremarkable except as noted in HPI and below PMFSH Past Medical History Medical History History of hypertension Hyperglycemia Hyperlipidemia Surgical History Surgical History No pertinent past surgical history Family History Family History Father Brain tumor Polio Mother Hypertension Dementia Social History Social History Social History: The patient works at [email or web address]. 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 Patient drinks approximately 6 pack of beer 3 days a week. He has 4 children. Code status full code Smoking packs per day: 1.5 Smoking cigarettes per day: 30.0 Years smoked: 30 Smoking pack-years: 45.00 Smoking status: Former smoker Tobacco type: cigars Second hand tobacco smoke exposure: No Smoking end date: 08/06/19 Alcohol intake: current Drinks per week: 15 Lack of Transportation: No Lack of Food: Never True Current Housing: Decline to Answer Concerned About Future Housing: Decline to Answer Difficulty Paying Gas/Electric Bills: Decline to Answer Difficulty Paying for Meds: Decline to Answer Currently Unemployed: Decline to Answer Education: Decline to Answer Difficulty w/ Childcare or Family Care: Decline to Answer Living arrangements: with family Gender identity (if verbalized by the patient): Male Spiritual care concerns: No Exam Narrative: APPEARANCE: Well appearing, no pain, no distress, well-nourished. HEAD: normocephalic, atraumatic. EYES: PERRLA/EOMI, conjunctivae clear. NOSE: Normal no drainage EARS:TMS clear with good light reflex. THROAT: Pharynx clear, no exudate. NECK: Supple. No adenopathy, no masses. RESPIRATORY: Airway patent, respirations nonlabored. Clear to auscultation bilaterally, no rales, rhonchi, wheezing. CARDIOVASCULAR: Regular rate and rhythm without murmurs rubs or gallops. ABDOMINAL: Soft, nontender, nondistended, normal bowel sounds MUSCULOSKELETAL: Moves all extremities. Strength/ROM intact, No edema, No calf tenderness. NEURO: Alert. Cranial nerves II through XII intact. Grossly intact SKIN: Warm, dry. Normal Color Course Vital Signs Vital signs: Vital Signs Temperature 97.5 F L 11/03/23 09:35 Pulse Rate 75 11/03/23 09:35 Respiratory Rate 16 11/03/23 09:35 Blood Pressure 203/123 H 11/03/23 09:35 Pulse Oximetry 98 11/03/23 09:35 Oxygen Delivery Room Air 11/03/23 09:35 Temperature 97.5 F L 11/03/23 09:35 Pulse Rate 64 11/03/23 12:36 Respiratory Rate 16 11/03/23 12:36 Blood Pressure 161/94 H 11/03/23 12:36 Pulse Oximetry 97 11/03/23 12:36 Oxygen Delivery Room Air 11/03/23 09:35 MDM - Chest Pain MDM Narrative Medical decision making narrative: 58-year-old male presenting emerg
[2023-11-03] MEDS: hydrALAZINE HCL 20 MG/ML VIAL 10 MG IV PUSH (09:51)
[2023-11-03 09:59] LABS: Alanine Aminotransferase 62 U/L (6-50); Alkaline Phosphatase 61 U/L (38-126); Anion Gap 11 mmol/L (4-12); Aspartate Amino Transferase 47 U/L (17-59); Bilirubin,Total 0.7 mg/dL (0.2-1.3); Blood Urea Nitrogen 15 mg/dL (9-20); Calcium 9.3 mg/dL (8.4-10.2); Carbon Dioxide 25 mmol/L (22-30); Chloride 107 mmol/L (98-107); Estimated CRCL calculation 84 ml/min; Estimated Glomerular Filt Rate > 60; Glucose 128 mg/dL (65-110); Lipase 93 U/L (23-300); Potassium 4.1 mmol/L (3.4-5.0); Sodium 143 mmol/L (137-145)
[2023-11-03 10:00] LABS: INR 0.9; Prothrombin Time 12.4 Seconds (11.1-14.7)
[2023-11-03 10:11] LABS: Troponin I < 0.012 ng/mL (0.000-0.034)
--- NOTE | 2023-11-03 11:00 | ECG_ITS ---
Test Date: 2023-11-03 11:06:35 Measurements Intervals [place] Rate: 76 P: 47 VA: 150 QRS: 40 QRSD: 80 T: 122 QT: 360 QTc: 407 Interpretive Statements SINUS RHYTHM NONSPECIFIC ST & T-WAVE ABNORMALITY Compared to ECG 11/03/2023 09:37:33 No significant changes Electronically Signed On 11-03-2023 11:31:58 CDT by Geraldo Echols M.D.
[2023-11-03] MEDS: NITROGLYCERIN SL 0.4 MG TABLET SUBLINGUAL (11:22)
[2023-11-03] MEDS: METOPROLOL TARTRATE 50 MG TAB PO (11:30)
[2023-11-03] MEDS: NITROGLYCERIN OINTMENT 1 INCH DOSE TRANSDERM (13:01)
[2023-11-03] MEDS: HEPARIN SODIUM 5,000 UNITS/ML VIAL 4000 UNITS IV PUSH (14:03)
[2023-11-03] MEDS: HEPARIN SOD/D5W 100 UNITS/ML 25,000 UNITS/250 ML BAG 10 UNITS IV CONT (14:04)
--- NOTE | 2023-11-03 14:18 | PM.IMHP ---
H&P: HPI History of Present Illness Date/Time: 11/03/23 14:30 Chief Complaint: Chest pressure. Narrative: This is a pleasant 58-year-old male with hypertension, hyperlipidemia, and gastric esophageal reflux disease who presented to the emergency department for evaluation of chest pressure. The patient provides the following history. Last week he was out mowing the grass with a push mower when he developed nonradiating, midsternal chest pressure. The pressure resolved with rest and he needed to stop several times until he was done mowing. He had a similar episode while shopping at [employer] later in the week. Similar symptoms occurred this morning while he was walking to his truck and it intensified while he was driving to work so he came in for evaluation. He denies associated lightheadedness, dizziness, sweats, nausea, vomiting, and shortness of breath. He has never had similar symptoms prior to last week. No history of stress test. He has had no symptoms since admission. In the ED: Blood pressure was 203/123 on arrival. The remainder of his vital signs have been stable. Labs were significant for a WBC count of 5.0, hemoglobin 14.0, glucose 128, ALT 62, baseline troponin less than 0.012, 3 are troponin 0.120, lipase 93. EKG showed sinus rhythm with nonspecific ST T-wave abnormalities. Chest x-ray showed no acute cardiopulmonary disease. Interventions include aspirin 324 mg, 1 in nitroglycerin paste, metoprolol titrate 50 mg p.o., and hydralazine 10 mg IV. He has also been started on a heparin drip. Blood pressures have improved into the 140 systolic. He has not had any recurrent symptoms since arrival. He is being admitted in this setting for close monitoring and Cardiology consultation. Review of Systems Review of Systems: 12 systems were reviewed and are negative except for as per HPI. [facility] Past Medical History Medical History Gastroesophageal reflux disease Hyperlipidemia Hypertension Surgical History Surgical History No pertinent past surgical history Family History Family History Father Brain tumor Polio Mother Hypertension Dementia Social History Social History Social History: Surrogate medical decision maker: Jessica Florian, spouse. Code status: Full code. Smoking packs per day: 2 Smoking cigarettes per day: 40.0 Years smoked: 25 Smoking pack-years: 50.00 Smoking status: Former smoker Tobacco type: cigarettes and cigars Second hand tobacco smoke exposure: Yes Smoking end date: 10/06/19 Alcohol intake: current Drinks per week: 18 Substance use: never Do You Feel Safe in your Home?: Yes Lack of Transportation: No Lack of Food: Never True Current Housing: I Have Housing Concerned About Future Housing: No Difficulty Paying Gas/Electric Bills: No Difficulty Paying for Meds: No Currently Unemployed: No Education: Decline to Answer Difficulty w/ Childcare or Family Care: No Living arrangements: with family Additional living arrangements comments: Lives with spouse in [place]. They have 4 children. 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 Spiritual care concerns: No Meds Home Medications and Allergies Home Medications Medication Instructions Recorded Confirmed Type omeprazole 20 mg capsule,delayed 20 mg PO DAILY #90 caps 11/03/22 11/03/23 Rx release lisinopril 20 mg tablet 20 mg PO DAILY #90 tabs 03/20/23 11/03/23 Rx atorvastatin 20 mg tablet 20 mg PO DAILY #90 tabs 08/22/23 11/03/23 Rx Allergies Allergy/AdvReac Type Severity Reaction Status Date / Time No Known Allergies Allergy Mild Verified 11/03/23 15:49 Vital Signs Vital Signs - 24 hr 11/03/23 09:35 11/03/23 09:39 11/02
--- NOTE | 2023-11-03 15:12 | ECHO_ITS ---
Patient Info Name: Jose Florian Age: 58 years : 1965 Gender: Male Ht: 68 in Wt: 220 lbs BSA: 2.22 m2 HR: 86 bpm BP: 168 / 103 mmHg Technical Quality: Good Exam Date: 11/03/2023 3:59 PM Exam Location: Echo Lab Patient Status: Outpatient Admit Date: 11/03/2023 Staff Ordering Physician: Kimberly Patrick PA-C Water Softener Servicer And Installer: Dagoberto Blood RDCS Attending Provider: Janes Simms MD Referring Physician: Darnell PATEL; Exam Type: CA echo doppler color flow Study Info Indications I21.4 - Non-ST elevation (NSTEMI) myocardial infarction Complete two-dimensional, color flow and Doppler transthoracic echocardiogram is performed. Summary 1. Complete two-dimensional, color flow and Doppler transthoracic echocardiogram is performed. 2. Left ventricular chamber dimension is normal. 3. Left ventricular systolic function is normal, estimated at 60-65%. 4. Left ventricular septal wall motion is normal. 5. Right ventricular chamber dimension is normal. 6. Right ventricular systolic function is normal. 7. There is mild mitral valve regurgitation. Left Ventricle Left ventricular chamber dimension is normal. Left ventricular systolic function is normal, estimated at 60-65%. There is no increased left ventricular wall thickness. Left ventricular septal wall motion is normal. The left ventricular diastolic function is normal. Right Ventricle Right ventricular chamber dimension is normal. Right ventricular systolic function is normal. Left Atria Left atrial chamber dimension is normal. Right Atria Right atrial chamber dimension is normal. Aortic Valve The aortic valve is trileaflet. There is no aortic valve sclerosis. There is no aortic valve stenosis. There is no aortic valve regurgitation. Pulmonic Valve The pulmonic valve is not well visualized. Mitral Valve There is no mitral valve stenosis. There is mild mitral valve regurgitation. Tricuspid Valve The tricuspid valve leaflets are normal. There is no significant tricuspid valve stenosis. There is no tricuspid valve regurgitation. Pericardium/Pleural The pericardium appears normal. There is no pericardial effusion. Inferior Vena Cava Normal inferior vena cava with >50% collapse upon inspiration consistent with normal right atrial pressure, Empty. Aorta The aortic root size at the sinus of Valsalva is normal. The prox ascending aorta size is normal. Left Ventricular Outflow Tract Name Value Normal LVOT 2D LVOT Diameter 2.0 cm LVOT Doppler LVOT Peak Gradient 5 mmHg LVOT Mean Gradient 3 mmHg LVOT VTI 20 cm LVOT VTI/AV VTI Ratio 0.8 LVOT Stroke Volume 64 ml LVOT CO 4.9 l/min LVOT CI 2.2 l/min/m2 Pulmonic Valve Name Value Normal PV Doppler PV Peak Gradient
--- NOTE | 2023-11-03 15:37 | PC.NURSE ---
This patient, Jose Florian, was admitted to IMU Room 209- at 15:29. Patient/family oriented to hospital policies and general routines including ID bracelet, bed and alarms, visiting hours, pain management, procedures, bathroom and other care routines, personal items, smoking policy, room service/diet, and visiting hours. Information on how to activate the Rapid Response Team has been discussed. Patient/Family are encouraged to report perceived risks to care and to ask questions if they do not understand what they are told or what they should do.
[2023-11-03 16:24] LABS: Cholesterol 192 mg/dL (0-200); HDL Direct 64 mg/dL; Triglycerides 54 mg/dL (<150)
[2023-11-03 16:35] LABS: LDL Cholesterol Direct 112 mg/dL
[2023-11-03 16:43] LABS: Troponin I 0.181 ng/mL (0.000-0.034)
[2023-11-03] MEDS: ACETAMINOPHEN 325 MG TABLET 650 MG PO (18:43)
[2023-11-03 20:07] LABS: Partial Thromboplastin Time 58.9 Seconds (22.3-36.8)
[2023-11-03] MEDS: carvediloL 3.125 MG TABLET PO (21:29)
[2023-11-03] MEDS: HEPARIN SODIUM 5,000 UNITS/ML VIAL 3000 UNITS IV PUSH (21:29)
[2023-11-04] VITALS (18 sets, daily range): BP systolic 136–163; BP diastolic 64–88; PULSE 62–84; RESP 18; TEMP 36.7–37.1; O2SAT 97–98
[2023-11-04 04:21] LABS: Basophils Percent Auto 0.5 % (0.2-1.2); Eosinophils Absolute Auto 0.3 K/mm3 (0-0.3); Eosinophils Percent Auto 4.2 % (0-4.4); Hematocrit 39.7 % (42.0-52.0); Hemoglobin 13.3 g/dL (14.0-18.0); Immature Granulocyte Absolute 0.02 K/mm3 (0.00-0.031); Immature Granulocyte Percent A 0.3 % (0-0.5); Lymphocytes Absolute Auto 1.68 K/mm3 (0.9-3.2); Mean Corpuscular HGB Conc 33.5 g/dl (32-36); Mean Corpuscular Hemoglobin 31.8 pg (26-34); Mean Platelet Volume 10.1 fl (7.4-10.4); Monocytes Absolute Auto 0.6 K/mm3 (0.1-0.6); Monocytes Percent Auto 8.8 % (2.6-8.5); Neutrophils Absolute Auto 3.9 K/mm3 (1.3-6.7); Neutrophils Percent Auto 60.2 % (45.5-73.1); Platelet Count Result 155 k/mm3 (150-375); Red Blood Count 4.18 M/mm3 (4.6-6.20); Red Cell Distribution Width 13.4 % (11.5-14.5); White Blood Count 6.5 K/mm3 (4.5-10.0)
[2023-11-04 04:31] LABS: Alanine Aminotransferase 50 U/L (6-50); Albumin Level 4.2 g/dL (3.5-5.1); Alkaline Phosphatase 59 U/L (38-126); Anion Gap 8 mmol/L (4-12); Aspartate Amino Transferase 37 U/L (17-59); Bilirubin,Total 0.9 mg/dL (0.2-1.3); Blood Urea Nitrogen 17 mg/dL (9-20); Calcium 8.7 mg/dL (8.4-10.2); Carbon Dioxide 25 mmol/L (22-30); Chloride 106 mmol/L (98-107); Estimated CRCL calculation 103 ml/min; Estimated Glomerular Filt Rate > 60; Glucose 103 mg/dL (65-110); Potassium 3.8 mmol/L (3.4-5.0); Sodium 139 mmol/L (137-145)
[2023-11-04 04:33] LABS: Partial Thromboplastin Time 94.8 Seconds (22.3-36.8)
[2023-11-04] MEDS: ATORVASTATIN 20 MG TABLET PO (08:59)
[2023-11-04] MEDS: lisinopriL 20 MG TABLET PO (08:59)
[2023-11-04] MEDS: carvediloL 3.125 MG TABLET PO ×2 (08:59→20:36)
[2023-11-04] MEDS: PANTOPRAZOLE 40 MG TABLET PO (08:59)
[2023-11-04] MEDS: ASPIRIN 81 MG CHEWABLE TABLET PO (08:59)
--- NOTE | 2023-11-04 09:59 | PM.IMPN ---
Progress Note: A&P Assessment and Plan (1) Non-ST elevation myocardial infarction (NSTEMI): Code(s): I21.4 - Non-ST elevation (NSTEMI) myocardial infarction Status: Acute (2) Hypertensive urgency: Code(s): I16.0 - Hypertensive urgency Status: Acute (3) Hyperlipidemia: Qualifiers: Hyperlipidemia type: unspecified Qualified Code(s): E78.5 - Hyperlipidemia, unspecified Code(s): E78.5 - Hyperlipidemia, unspecified Status: Acute (4) Gastroesophageal reflux disease: Code(s): K21.9 - Gastro-esophageal reflux disease without esophagitis Status: Acute Plan This is a pleasant 58-year-old male with hypertension, hyperlipidemia, and gastric esophageal reflux disease who presented to the emergency department for evaluation of chest pressure. Last week he was out mowing the grass with a push mower when he developed nonradiating, midsternal chest pressure. The pressure resolved with rest and he needed to stop several times until he was done mowing. He had a similar episode while shopping at [employer] later in the week. Similar symptoms occurred this morning while he was walking to his truck and it intensified while he was driving to work so he came in for evaluation. He denies associated lightheadedness, dizziness, sweats, nausea, vomiting, and shortness of breath. He has never had similar symptoms prior to last week. No history of stress test. He has had no symptoms since admission. In the ED: Blood pressure was 203/123 on arrival. The remainder of his vital signs have been stable. Labs were significant for a WBC count of 5.0, hemoglobin 14.0, glucose 128, ALT 62, baseline troponin less than 0.012, 3 hour troponin 0.120 followed by 0.181, lipase 93. EKG showed sinus rhythm with nonspecific ST T-wave abnormalities. Chest x-ray showed no acute cardiopulmonary disease. Diagnosis of non ST elevation [place]. Interventions include aspirin 324 mg, 1 in nitroglycerin paste, metoprolol titrate 50 mg p.o., and hydralazine 10 mg IV. He has also been started on a heparin drip. Blood pressures have improved into the 140 systolic. He has not had any recurrent symptoms since arrival. He is being admitted in this setting for close monitoring and Cardiology consultation. Cardiology has been consulted and he is currently NPO after midnight for possible cardiac catheterization. Continue statin and check fasting lipid with LDL 112. Check A1c increase atorvastatin to 40 mg Hypertension: On carvedilol and lisinopril DVT prophylaxis on heparin drip Subjective Date/time seen: 11/04/23 09:59 Interval history: Feels okay. No further chest pain. No shortness of breath or cough Review of Systems Review of Systems: All systems reviewed & are unremarkable except as noted in HPI and below Exam Narrative: General: Well-developed, nontoxic-appearing gentleman supine in bed. HEENT: PERRL, EOMI. Sclera anicteric. Oral mucosa moist. Neck: Supple. Respiratory: Lungs are clear to auscultation bilaterally. Cardiovascular: Regular rate and rhythm with S1-S2. Chest: No tenderness to palpation over the chest wall. Gastrointestinal: Abdomen is soft, nontender, and nondistended with positive bowel sounds. Skin: Warm and dry. No rash or lesions on limited exam. Extremities: No cyanosis, clubbing, or edema. Radial and pedal pulses intact. Neurological: Alert. Cranial nerves 2-12 are grossly intact. No gross focal deficits to casual conversation. Psychiatric: Pleasant and cooperative with normal mood and affect. Judgment and insight intact. Objective Data Vital Signs Vital Signs: Vital Signs - 24 hr 11/03/23 10:00 11/03/23 10:05 11/03/23 10:16 Temperature Pulse Rate 80 83 82 Respiratory Rate 17 15 15 Blood Pressure 187/103 H 183/93 H Pulse Oximetry 99 98 98 Oxygen Delivery 11/03/23 10:21 11/03/23 10:26 11/03/23 11:30 Temperature Pulse Rate 80 88 95 Respiratory Rate 14 15 Blood Press
[2023-11-04 10:20] LABS: Partial Thromboplastin Time 76.1 Seconds (22.3-36.8)
[2023-11-04] MEDS: HEPARIN SOD/D5W 100 UNITS/ML 25,000 UNITS/250 ML BAG 12 UNITS IV CONT (12:18)
[2023-11-04 13:04] LABS: Hemoglobin A1C 5.6 % (<5.7)
--- NOTE | 2023-11-04 15:35 | PM.CNCAR ---
Assessment and Plan Assessment and plan (1) Non-ST elevation myocardial infarction (NSTEMI): Code(s): I21.4 - Non-ST elevation (NSTEMI) myocardial infarction Status: Acute Plan NSTEMI possible secondary to demand ischemia in setting of hypertensive urgency versus underlying coronary artery disease was tab 1 NSTEMI Hypertensive urgency on presentation Mixed dyslipidemia Plan Left heart catheterization tomorrow Aspirin 81 mg daily Blood pressure control using lisinopril & beta aylin Lipitor History of Present Illness History of Present Illness Consult date/time: 11/04/23 15:35 Reason For Visit: NSTEMI Narrative: 58-year-old male patient presented to the hospital with acute chest pain. Chest pain has been happening for last week. It was intermittent happened 2 times. Chest pain with retrosternal mid nonradiating, lasting for minutes without precipitating or relieving factors. Yesterday had an episode of chest pressure that was moderate to severe persistent lasted for hours. On arrival to the ED he was noted to have uncontrolled hypertension. Patient has history of hypertension has been controlled with medication. He does not measure blood pressure at home. Review of Systems Review of Systems: All systems reviewed & are unremarkable except as noted in HPI and below PMFSH Past Medical History Medical History Gastroesophageal reflux disease Hyperlipidemia Hypertension Surgical History Surgical History No pertinent past surgical history Family History Family History Father Brain tumor Polio Mother Hypertension Dementia Social History Social History Social History: Surrogate medical decision maker: Jessica Maximinotanner, spouse. Code status: Full code. Smoking packs per day: 2 Smoking cigarettes per day: 40.0 Years smoked: 25 Smoking pack-years: 50.00 Smoking status: Former smoker Tobacco type: cigarettes and cigars Second hand tobacco smoke exposure: Yes Smoking end date: 10/06/19 Alcohol intake: current Drinks per week: 18 Substance use: never Do You Feel Safe in your Home?: Yes Lack of Transportation: No Lack of Food: Never True Current Housing: I Have Housing Concerned About Future Housing: No Difficulty Paying Gas/Electric Bills: No Difficulty Paying for Meds: No Currently Unemployed: No Education: Decline to Answer Difficulty w/ Childcare or Family Care: No Living arrangements: with family Additional living arrangements comments: Lives with spouse in [place]. They have 4 children. 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 Spiritual care concerns: No Meds Home Medications and Allergies Home Medications Medication Instructions Recorded Confirmed Type omeprazole 20 mg capsule,delayed 20 mg PO DAILY #90 caps 11/03/22 11/03/23 Rx release lisinopril 20 mg tablet 20 mg PO DAILY #90 tabs 03/20/23 11/03/23 Rx atorvastatin 20 mg tablet 20 mg PO DAILY #90 tabs 08/22/23 11/03/23 Rx Allergies Allergy/AdvReac Type Severity Reaction Status Date / Time No Known Allergies Allergy Mild Verified 11/03/23 15:49 Vital Signs Vital Signs - 24 hr 11/03/23 16:00 11/03/23 16:00 11/03/23 18:00 Temperature 36.7 C Pulse Rate 75 75 65 Respiratory Rate 16 Blood Pressure 167/85 H Pulse Oximetry 99 Oxygen Delivery 11/03/23 20:44 11/03/23 21:29 11/04/23 00:22 Temperature 36.8 C 36.7 C Pulse Rate 72 70 65 Respiratory Rate 18 18 Blood Pressure 155/82 H 155/82 H Pulse Oximetry 98 98 Oxygen Delivery 11/03/23 20:00 11/04/23 00:00 11/04/23 05:18 Temperature 36.7 C Pulse Rate 72 65 69 Respiratory Rate 18 18 18 Blood Pressure 152/81 H Pulse Oxim
[2023-11-05] VITALS (36 sets, daily range): BP systolic 101–167; BP diastolic 72–107; PULSE 55–87; RESP 8–18; TEMP 36–36.8; O2SAT 93–100
[2023-11-05 04:55] LABS: Basophils Percent Auto 0.5 % (0.2-1.2); Eosinophils Absolute Auto 0.2 K/mm3 (0-0.3); Eosinophils Percent Auto 3.9 % (0-4.4); Hematocrit 40.5 % (42.0-52.0); Hemoglobin 13.6 g/dL (14.0-18.0); Immature Granulocyte Absolute 0.01 K/mm3 (0.00-0.031); Immature Granulocyte Percent A 0.2 % (0-0.5); Lymphocytes Absolute Auto 1.62 K/mm3 (0.9-3.2); Lymphocytes Percent Auto 26.4 % (18.3-44.2); Mean Corpuscular HGB Conc 33.6 g/dl (32-36); Mean Corpuscular Hemoglobin 31.7 pg (26-34); Mean Corpuscular Volume 94.4 fl (80-100); Mean Platelet Volume 9.6 fl (7.4-10.4); Monocytes Absolute Auto 0.5 K/mm3 (0.1-0.6); Monocytes Percent Auto 8.8 % (2.6-8.5); Neutrophils Absolute Auto 3.7 K/mm3 (1.3-6.7); Neutrophils Percent Auto 60.2 % (45.5-73.1); Platelet Count Result 146 k/mm3 (150-375); Red Blood Count 4.29 M/mm3 (4.6-6.20); Red Cell Distribution Width 13.4 % (11.5-14.5); White Blood Count 6.1 K/mm3 (4.5-10.0)
[2023-11-05 05:06] LABS: Alanine Aminotransferase 57 U/L (6-50); Albumin Level 4.2 g/dL (3.5-5.1); Alkaline Phosphatase 59 U/L (38-126); Anion Gap 5 mmol/L (4-12); Aspartate Amino Transferase 43 U/L (17-59); Bilirubin,Total 0.9 mg/dL (0.2-1.3); Blood Urea Nitrogen 14 mg/dL (9-20); Calcium 8.8 mg/dL (8.4-10.2); Carbon Dioxide 28 mmol/L (22-30); Chloride 105 mmol/L (98-107); Estimated CRCL calculation 92 ml/min; Estimated Glomerular Filt Rate > 60; Glucose 111 mg/dL (65-110); Potassium 3.9 mmol/L (3.4-5.0); Sodium 138 mmol/L (137-145)
[2023-11-05 05:07] LABS: Partial Thromboplastin Time 81.7 Seconds (22.3-36.8)
[2023-11-05] MEDS: HEPARIN SOD/D5W 100 UNITS/ML 25,000 UNITS/250 ML BAG 12 UNITS IV CONT (09:13)
[2023-11-05] MEDS: lisinopriL 20 MG TABLET PO (09:14)
[2023-11-05] MEDS: carvediloL 3.125 MG TABLET PO (09:14)
[2023-11-05] MEDS: ATORVASTATIN 40 MG TABLET PO (09:14)
[2023-11-05] MEDS: ASPIRIN 81 MG CHEWABLE TABLET PO (09:14)
[2023-11-05] MEDS: PANTOPRAZOLE 40 MG TABLET PO (09:14)
--- NOTE | 2023-11-05 10:17 | WPDMODSED ---
Moderate Sedation Note-Pt Data Patient Data Diagnosis: Chest pain, ACS Present Complaint: Intermittent chest pain Procedure to be performed/Plan: Left heart catheterization Allergies Allergy/AdvReac Type Severity Reaction Status Date / Time No Known Allergies Allergy Mild Verified 11/03/23 15:49 Home Medications Medication Instructions Recorded Confirmed Type omeprazole 20 mg capsule,delayed 20 mg PO DAILY #90 caps 11/03/22 11/03/23 Rx release lisinopril 20 mg tablet 20 mg PO DAILY #90 tabs 03/20/23 11/03/23 Rx atorvastatin 20 mg tablet 20 mg PO DAILY #90 tabs 08/22/23 11/03/23 Rx Current Medications: Active Medications Acetaminophen (Acetaminophen 325 Mg Tablet) 650 mg PO Q6H PRN PRN Reason: Mild Pain (1-3) or Fever Last Admin: 11/03/23 18:43 Dose: 650 mg Aspirin (Aspirin 81 Mg Chewable Tablet) 81 mg PO DAILY@0800 [facility] Last Admin: 11/05/23 09:14 Dose: 81 mg Atorvastatin Calcium (Atorvastatin 40 Mg Tablet) 40 mg PO DAILY [facility] Last Admin: 11/05/23 09:14 Dose: 40 mg Carvedilol (Carvedilol 3.125 Mg Tablet) 3.125 mg PO Q12HR [facility] Last Admin: 11/05/23 09:14 Dose: 3.125 mg Heparin Sodium (Porcine) (Heparin Sodium 5,000 Units/Ml Vial) 4,000 units IV PUSH PRN PRN PRN Reason: aPTT less than 55 seconds Heparin Sodium (Porcine) (Heparin Sodium 5,000 Units/Ml Vial) 3,000 units IV PUSH PRN PRN PRN Reason: aPTT 55 - 70 seconds Last Admin: 11/03/23 21:29 Dose: 3,000 units Heparin Sodium/Dextrose (Heparin Sodium/D5w 100 Units/Ml) 25,000 units in 250 mls @ 12 mls/hr IV CONT .[id number] [facility]; Protocol Last Admin: 11/05/23 09:13 Dose: 1,200 units/hr, 12 mls/hr Lisinopril (Lisinopril 20 Mg Tablet) 20 mg PO DAILY [facility] Last Admin: 11/05/23 09:14 Dose: 20 mg Pantoprazole Sodium (Pantoprazole 40 Mg Tablet) 40 mg PO QAM [facility] Last Admin: 11/05/23 09:14 Dose: 40 mg Perflutren Lipid Microsphere (Perflutren Lipid Microspheres 1.5 Ml Vial Diluted To 10 Ml Total Volume) 0 ml IV PUSH ONCE PRN; Protocol PRN Reason: adequate visualization Stop: 11/06/23 15:12 Sedation/Anesthesia: No previous sedation/anesthesia problems (including family history). [facility] [place] Past Medical History Medical History Gastroesophageal reflux disease Hyperlipidemia Hypertension Surgical History Surgical History No pertinent past surgical history Family History Family History Father Brain tumor Polio Mother Hypertension Dementia Social History Social History Social History: Surrogate medical decision maker: Jessica Florian, spouse. Code status: Full code. Smoking packs per day: 2 Smoking cigarettes per day: 40.0 Years smoked: 25 Smoking pack-years: 50.00 Smoking status: Former smoker Tobacco type: cigarettes and cigars Second hand tobacco smoke exposure: Yes Smoking end date: 10/06/19 Alcohol intake: current Drinks per week: 18 Substance use: never Do You Feel Safe in your Home?: Yes Lack of Transportation: No Lack of Food: Never True Current Housing: I Have Housing Concerned About Future Housing: No Difficulty Paying Gas/Electric Bills: No Difficulty Paying for Meds: No Currently Unemployed: No Education: Decline to Answer Difficulty w/ Childcare or Family Care: No Living arrangements: with family Additional living arrangements comments: Lives with spouse in [place]. They have 4 children. 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
--- NOTE | 2023-11-05 11:14 | ECG_ITS ---
Test Date: 2023-11-05 13:41:35 Measurements Intervals [place] Rate: 74 P: 71 AK: 164 QRS: 30 QRSD: 75 T: -53 QT: 404 QTc: 450 Interpretive Statements SINUS RHYTHM T WAVE ABNORMALITY IN ANT/INF LEADS- CONSIDER ISCHEMIA ABNORMAL ECG Compared to ECG 11/03/2023 11:06:35 Possible ischemia now present Electronically Signed On 11-05-2023 15:17:57 CDT by Remberto Magaña D.O.
--- NOTE | 2023-11-05 11:19 | WPDCARDPROC ---
Cardiac Cath Procedure Note Date of procedure:: 11/05/23 Performing physician:: Keegan Gagnon MD Indication:: acute coronary syndrome Brief clinical history:: this is a 58-year-old man without previous known coronary disease. He does have hypertension and dyslipidemia. Presents to the hospital with unstable angina with a modest troponin rise Procedure Procedure performed:: left ventriculogram coronary angiogram PCI(SHEKHAR) to the mid right coronary artery Sedation/Medication given:: fentanyl 50 mg Versed 2 mg case start time 10:38 a.m. case end time 11:10 a.m. sedation provided by Gita Galindo RN, trained observer Access site:: right femoral artery Estimated blood loss:: 20 cc Procedure note:: patient was brought to the cardiac catheterization lab in the postabsorptive state where the right femoral triangle was prepared and draped in the usual sterile fashion. Anesthesia was provided with 1% lidocaine infiltrated locally. Using the modified Seldinger technique the right femoral artery was punctured and a 5 [place] vascular sheath was placed. I then used a 5 [place] angled pigtail catheter to measure left-sided hemodynamics and to inject the left ventriculogram in the CHEN projection. Following this the left coronary artery was engaged and injected using a 5 [place] FL4 catheter. The right coronary was engaged and injected using a 5 [place] JR4 catheter. The cineangiograms were then reviewed and PCI of the right coronary artery was recommended and carried out as detailed below. Prior to PCI the the 5 [place] sheath was upsized to a 6 [place] sheath over guidewire. Patient received 600 mg of clopidogrel, 325 mg of aspirin and was systemically anticoagulated with a bolus and infusion of Angiomax for this PCI. Following intervention the sheath was sutured into position the patient was taken to the holding area for recovery and sheath removal. Findings:: Hemodynamics: Central aortic pressure is 160 over 82 left ventricle 160 over to end-diastolic 14 there is no gradient on pullback across the aortic valve. Left ventricle: The LV is normal in size. the inferior segment is [id number] hypodynamic the remainder of the ventricle contracts normally. The global ejection fraction is normal At 55-60%. The left main coronary artery is nicely patent the left anterior descending is a moderate caliber artery extending down to the apex. There is mild plaque of about 30% stenosis in proximal 3rd of the LAD the in no projection does this appear to be flow-limiting the circumflex is codominant to the posterior circulation. It gives rise to the marginal branches and posterior branches. The circumflex is free of disease the right coronary artery is moderate to large in caliber and is codominant terminating in an RPDA but no posterolateral branches. There is high-grade stenosis of 90% between the 2nd and 3rd portions of the RCA than there is mild plaquing in the 2nd portion and prior to that there is about 70% stenosis in the more proximal segment. Intervention: The right coronary artery was engaged using a 6 [place] JR4 4 guiding catheter. I used a 0.014 [employer] coronary guidewire which he easily advanced through the disease into the PDA. The lesion was then pre-dilated 3 x 25 mm Panterra Balloon at 7 atmospheres. Following this the target lesion covering the entire area of disease described above was stented using a 3.5 x 35 mm [employer] stent deployed at 10 atmospheres which left the vessel widely patent with no residual stenosis disruption dissection or distal embolization. Conclusion:: 1. Codominant coronary circulation with single-vessel disease involving high-grade stenosis in the mid right coronary artery as described above 2. mild non flow-limiting 30% stenosis in the proximal LAD 3. mild inferior hypokinesia with overall normal ejection fraction 4. successful revascularization usi
[2023-11-05] MEDS: NITROGLYCERIN SL 0.4 MG TABLET SUBLINGUAL ×3 (11:30→18:36)
[2023-11-05] MEDS: SODIUM CHLORIDE 0.9% IV 1,000 ML 125 ML IV CONT (11:55)
[2023-11-05 12:18] LABS: Cholesterol 183 mg/dL (0-200); HDL Direct 52 mg/dL; Triglycerides 94 mg/dL (<150)
[2023-11-05 12:29] LABS: LDL Cholesterol Direct 113 mg/dL
[2023-11-05] MEDS: hydrALAZINE HCL 20 MG/ML VIAL 10 MG IV PUSH (13:24)
--- NOTE | 2023-11-05 14:02 | PM.IMPN ---
Progress Note: A&P Assessment and Plan (1) Non-ST elevation myocardial infarction (NSTEMI): Code(s): I21.4 - Non-ST elevation (NSTEMI) myocardial infarction Status: Acute (2) Hypertensive urgency: Code(s): I16.0 - Hypertensive urgency Status: Acute (3) Hyperlipidemia: Qualifiers: Hyperlipidemia type: unspecified Qualified Code(s): E78.5 - Hyperlipidemia, unspecified Code(s): E78.5 - Hyperlipidemia, unspecified Status: Acute (4) Gastroesophageal reflux disease: Code(s): K21.9 - Gastro-esophageal reflux disease without esophagitis Status: Acute Plan This is a pleasant 58-year-old male with hypertension, hyperlipidemia, and gastric esophageal reflux disease who presented to the emergency department for evaluation of chest pressure. Last week he was out mowing the grass with a push mower when he developed nonradiating, midsternal chest pressure. The pressure resolved with rest and he needed to stop several times until he was done mowing. He had a similar episode while shopping at [employer] later in the week. Similar symptoms occurred this morning while he was walking to his truck and it intensified while he was driving to work so he came in for evaluation. He denies associated lightheadedness, dizziness, sweats, nausea, vomiting, and shortness of breath. He has never had similar symptoms prior to last week. No history of stress test. He has had no symptoms since admission. In the ED: Blood pressure was 203/123 on arrival. The remainder of his vital signs have been stable. Labs were significant for a WBC count of 5.0, hemoglobin 14.0, glucose 128, ALT 62, baseline troponin less than 0.012, 3 hour troponin 0.120 followed by 0.181, lipase 93. EKG showed sinus rhythm with nonspecific ST T-wave abnormalities. Chest x-ray showed no acute cardiopulmonary disease. Diagnosis of non ST elevation [place]. Interventions include aspirin 324 mg, 1 in nitroglycerin paste, metoprolol titrate 50 mg p.o., and hydralazine 10 mg IV. He has also been started on a heparin drip. Blood pressures have improved into the 140 systolic. He has not had any recurrent symptoms since arrival. He is being admitted in this setting for close monitoring and Cardiology consultation. Cardiology has been consulted and he is currently NPO after midnight for possible cardiac catheterization. Continue statin and check fasting lipid with LDL 112. Check A1c increase atorvastatin to 40 mg Hypertension: On carvedilol and lisinopril DVT prophylaxis on heparin drip Status post cardiac catheterization 11/05/2023: 1. Codominant coronary circulation with single-vessel disease involving high-grade stenosis in the mid right coronary artery as described above 2. mild non flow-limiting 30% stenosis in the proximal LAD 3. mild inferior hypokinesia with overall normal ejection fraction 4. successful revascularization using the 3.5 x 35 mm Orsiro stent covering the entire area of disease described above in the right coronary artery resulting in excellent angiographic outcome Subjective Date/time seen: 11/05/23 14:02 Interval history: Going for catheterization today. No chest pain or shortness of breath Review of Systems Review of Systems: All systems reviewed & are unremarkable except as noted in HPI and below Exam Narrative: General: Well-developed, nontoxic-appearing gentleman supine in bed. HEENT: PERRL, EOMI. Sclera anicteric. Oral mucosa moist. Neck: Supple. Respiratory: Lungs are clear to auscultation bilaterally. Cardiovascular: Regular rate and rhythm with S1-S2. Chest: No tenderness to palpation over the chest wall. Gastrointestinal: Abdomen is soft, nontender, and nondistended with positive bowel sounds. Skin: Warm and dry. No rash or lesions on limited exam. Extremities: No cyanosis, clubbing, or edema. Radial and pedal pulses intact. Neurological: Alert. Cranial nerves 2-12 are grossly intact. No poncho
[2023-11-05] MEDS: SIMETHICONE 80 MG TAB.CHEW PO (16:35)
--- NOTE | 2023-11-05 20:10 | PC.NURSE ---
Dr. Echols notified of patient's continued chest pain after cardiac cath today. MD with orders to give another dose of nitro and monitor. Pt currently rating chest pain 06/16.
[2023-11-05] MEDS: carvediloL 12.5 MG TABLET PO (20:19)
[2023-11-06] VITALS (10 sets, daily range): BP systolic 130–170; BP diastolic 62–88; PULSE 69–90; RESP 14–18; TEMP 36.6–36.8; O2SAT 98–99
--- NOTE | 2023-11-06 01:45 | PC.NURSE ---
Pt's IV infiltrated. Pt stated he wanted the catheter removed. This nurse educated pt on why another IV was needed and pt stated that he didn't want one right now.
[2023-11-06 04:25] LABS: Basophils Percent Auto 0.3 % (0.2-1.2); Eosinophils Absolute Auto 0.2 K/mm3 (0-0.3); Eosinophils Percent Auto 2.7 % (0-4.4); Hematocrit 40.3 % (42.0-52.0); Hemoglobin 13.2 g/dL (14.0-18.0); Immature Granulocyte Absolute 0.02 K/mm3 (0.00-0.031); Immature Granulocyte Percent A 0.2 % (0-0.5); Lymphocytes Absolute Auto 1.21 K/mm3 (0.9-3.2); Lymphocytes Percent Auto 13.4 % (18.3-44.2); Mean Corpuscular HGB Conc 32.8 g/dl (32-36); Mean Corpuscular Volume 94.6 fl (80-100); Mean Platelet Volume 9.9 fl (7.4-10.4); Monocytes Absolute Auto 0.9 K/mm3 (0.1-0.6); Monocytes Percent Auto 9.9 % (2.6-8.5); Neutrophils Absolute Auto 6.6 K/mm3 (1.3-6.7); Neutrophils Percent Auto 73.5 % (45.5-73.1); Platelet Count Result 158 k/mm3 (150-375); Red Blood Count 4.26 M/mm3 (4.6-6.20); Red Cell Distribution Width 13.4 % (11.5-14.5)
[2023-11-06 04:38] LABS: Alanine Aminotransferase 54 U/L (6-50); Albumin Level 4.1 g/dL (3.5-5.1); Alkaline Phosphatase 55 U/L (38-126); Anion Gap 7 mmol/L (4-12); Aspartate Amino Transferase 52 U/L (17-59); Bilirubin,Total 0.9 mg/dL (0.2-1.3); Blood Urea Nitrogen 10 mg/dL (9-20); Carbon Dioxide 24 mmol/L (22-30); Chloride 107 mmol/L (98-107); Estimated CRCL calculation 103 ml/min; Estimated Glomerular Filt Rate > 60; Glucose 102 mg/dL (65-110); Magnesium 2.2 mg/dL (1.6-2.3); Sodium 138 mmol/L (137-145)
[2023-11-06 04:40] LABS: Partial Thromboplastin Time 29.4 Seconds (22.3-36.8)
--- NOTE | 2023-11-06 05:11 | ECG_ITS ---
Test Date: 2023-11-06 10:57:22 Measurements Intervals [place] Rate: 67 P: 60 [place]: 172 QRS: 12 QRSD: 76 T: -69 QT: 393 QTc: 416 Interpretive Statements SINUS RHYTHM NONSPECIFIC T-WAVE ABNORMALITY- DIFFUSE LEADS BASELINE ARTIFACT- I, II, III, AVL, AVF, V4-V6 BORDERLINE ECG Compared to ECG 11/05/2023 13:41:35 Possible ischemia no longer present Electronically Signed On 11-06-2023 11:48:13 CDT by Remberto Magaña D.O.
[2023-11-06] MEDS: CLOPIDOGREL BISULFATE 75 MG TABLET PO (08:01)
[2023-11-06] MEDS: ASPIRIN 81 MG CHEWABLE TABLET PO (08:01)
[2023-11-06] MEDS: ATORVASTATIN 40 MG TABLET 80 MG PO (08:01)
[2023-11-06] MEDS: PANTOPRAZOLE 40 MG TABLET PO (08:01)
[2023-11-06] MEDS: lisinopriL 20 MG TABLET PO (08:01)
[2023-11-06] MEDS: carvediloL 12.5 MG TABLET PO (08:01)
--- NOTE | 2023-11-06 09:08 | PM.PNCARD ---
Progress Note: A&P Assessment and Plan (1) Non-ST elevation myocardial infarction (NSTEMI): Code(s): I21.4 - Non-ST elevation (NSTEMI) myocardial infarction Status: Acute Assessment and Plan: New diagnosis of coronary artery disease presenting with NSTEMI. Now s/p PCI to mid RCA/SHEKHAR x 1. Preserved LV function. Asymptomatic this morning Continue DAPT with Plavix for 1 year, ASA indefinitely Continue high intensity statin Aggressive risk factor modification for CAD Cardiac rehab referral BP management OK for discharge today from a cardiac perspective.n (2) Hypertension: Qualifiers: Hypertension type: primary hypertension Qualified Code(s): I10 - Essential (primary) hypertension Code(s): I10 - Essential (primary) hypertension Status: Acute Assessment and Plan: Improved. Continue Coreg 12.5mg b.i.d., lisinopril 20mg daily. (3) CAD (coronary artery disease): Code(s): I25.10 - Atherosclerotic heart disease of [place] coronary artery without angina pectoris Status: Acute Assessment and Plan: New diagnosis of coronary artery disease with [facility] findings as detailed below. 1. Codominant coronary circulation with single-vessel disease involving high-grade stenosis in the mid right coronary artery as described above 2. mild non flow-limiting 30% stenosis in the proximal LAD 3. mild inferior hypokinesia with overall normal ejection fraction 4. successful revascularization using the 3.5 x 35 mm Orsiro stent covering the entire area of disease described above in the right coronary artery resulting in excellent angiographic outcome Continue DAPT with Plavix for 1 year, ASA indefinitely Continue high intensity statin Aggressive risk factor modification for CAD Cardiac rehab referral BP management Subjective Date/time seen: 11/06/23 09:08 Interval history: Cardiology follow up for CAD, NSTEMI Feeling well this morning and has no complaints. Had some mild chest discomfort which resolved and has not returned. No shortness of breath. Review of Systems Review of Systems: All systems reviewed & are unremarkable except as noted in HPI and below Exam Const: General: comfortable and no acute distress Other: Able to lie flat HENMT: Face/Nose/Sinus: Normal nares present and no epistaxis Mouth: Yes moist mucous membranes Eyes: Sclera: sclerae normal Pupils: Equal, round and reactive pupils present Neck: Neck: supple and no JVD Carotids: no bruits Resp: Auscultation: clear to auscultation bilaterally and lung sounds not diminished Other: No chest wall tenderness Cardio: Rate: regular rate Rhythm: regular rhythm Heart sounds: no gallops, no murmurs and no rubs GI: Auscultation: normal bowel sounds Skin: General skin exam: normal color, rashes and/or lesions noted and no erythema Other: Warm Neuro: Cranial nerves: Yes Equal, round and reactive pupils present Speech: normal speech Other: No obvious focal deficit or facial asymmetry Extrem: General: no edema Other: R groin arterial access site free from any bleeding, hematoma, pain. Very mild ecchymosis surrounding puncture site. Normal capillary refills Intact distal pulses. Objective Data Vital Signs Vital Signs: Vital Signs - 24 hr 11/05/23 11:30 11/05/23 11:30 11/05/23 11:45 Temperature Pulse Rate 64 55 L Pulse Rate [Monitor] 64 Respiratory Rate 8 L 12 Blood Pressure 162/107 H 110/72 Pulse Oximetry 93 93 Oxygen Delivery Room Air Room Air 11/05/23 11:45 11/05/23 12:00 11/05/23 12:00 Temperature Pulse Rate 55 L Pulse Rate [Monitor] 55 L 60 Respiratory Rate 11 L Blood Pressure 132/86 Pulse Oximetry 94 Oxygen Delivery Room Air 11/05/23 12:45 11/05/23 12:45 11/05/23 13:00 Temperature Pulse Rate 63 67 Pulse Rate [Monitor] 63 Respiratory Rate 12 15 Blood Pressure 152/92 H 155/92 H Pulse Ox
--- NOTE | 2023-11-06 10:50 | PM.DS ---
DS: Admitting Diagnosis Discharge Date 11/06/23 Admitting Diagnosis Chest pain DS: Discharge Diagnosis Discharge Diagnosis (1) Non-ST elevation myocardial infarction (NSTEMI): Code(s): I21.4 - Non-ST elevation (NSTEMI) myocardial infarction Status: Acute (2) Hypertensive urgency: Code(s): I16.0 - Hypertensive urgency Status: Acute (3) Hyperlipidemia: Qualifiers: Hyperlipidemia type: unspecified Qualified Code(s): E78.5 - Hyperlipidemia, unspecified Code(s): E78.5 - Hyperlipidemia, unspecified Status: Acute (4) Gastroesophageal reflux disease: Code(s): K21.9 - Gastro-esophageal reflux disease without esophagitis Status: Acute DS: Summary Hospital Course Hospital Course: This is a pleasant 58-year-old male with hypertension, hyperlipidemia, and gastric esophageal reflux disease who presented to the emergency department for evaluation of chest pressure. Last week he was out mowing the grass with a push mower when he developed nonradiating, midsternal chest pressure. The pressure resolved with rest and he needed to stop several times until he was done mowing. He had a similar episode while shopping at [employer] later in the week. Similar symptoms occurred this morning while he was walking to his truck and it intensified while he was driving to work so he came in for evaluation. He denies associated lightheadedness, dizziness, sweats, nausea, vomiting, and shortness of breath. He has never had similar symptoms prior to last week. No history of stress test. He has had no symptoms since admission. In the ED: Blood pressure was 203/123 on arrival. The remainder of his vital signs have been stable. Labs were significant for a WBC count of 5.0, hemoglobin 14.0, glucose 128, ALT 62, baseline troponin less than 0.012, 3 hour troponin 0.120 followed by 0.181, lipase 93. EKG showed sinus rhythm with nonspecific ST T-wave abnormalities. Chest x-ray showed no acute cardiopulmonary disease. Diagnosis of non ST elevation [place]. Interventions include aspirin 324 mg, 1 in nitroglycerin paste, metoprolol titrate 50 mg p.o., and hydralazine 10 mg IV. He has also been started on a heparin drip. Blood pressures have improved into the 140 systolic. He has not had any recurrent symptoms since arrival. He is being admitted in this setting for close monitoring and Cardiology consultation. Cardiology has been consulted and he is currently NPO after midnight for possible cardiac catheterization. Continue statin and check fasting lipid with LDL 112. Check A1c increase atorvastatin to 40 mg Hypertension: On carvedilol and lisinopril DVT prophylaxis on heparin drip Status post cardiac catheterization 11/05/2023: 1. Codominant coronary circulation with single-vessel disease involving high-grade stenosis in the mid right coronary artery as described above 2. mild non flow-limiting 30% stenosis in the proximal LAD 3. mild inferior hypokinesia with overall normal ejection fraction 4. successful revascularization using the 3.5 x 35 mm Orsiro stent covering the entire area of disease described above in the right coronary artery resulting in excellent angiographic outcome he did well postoperatively and will go home on cardiac meds. Time Spent with Patient Time attestation: Total time spent providing and/or coordinating discharge services:35 mins Exam Narrative: General: Well-developed, nontoxic-appearing gentleman supine in bed. HEENT: PERRL, EOMI. Sclera anicteric. Oral mucosa moist. Neck: Supple. Respiratory: Lungs are clear to auscultation bilaterally. Cardiovascular: Regular rate and rhythm with S1-S2. Chest: No tenderness to palpation over the chest wall. Gastrointestinal: Abdomen is soft, nontender, and nondistended with positive bowel sounds. Skin: Warm and dry. No rash or lesions on limited exam. Extremities: No cyanosis, clubbing, or edema. Radial and pedal pulses intact. Neurologic
== END 2023-11-06 13:10 | disposition home or self-care (01) | DRG 322 ==
LOC: ANHED 14:04 → ANHIMU 14:29
PROVIDERS: Internal Medicine; Physician Assistant; Specialist; Admitting Provider General Practice; Emergency Provider Emergency Medicine; PCP Physician Assistant; Visit Provider Internal Medicine
PROC: 4A023N7 Measurement of Cardiac Sampling and Pressure, Left Heart, Percutaneous Approach (ICD-10-PCS; CPT 93452; principal; 2023-11-05 10:00)
PROC: 4A023N7 Measurement of Cardiac Sampling and Pressure, Left Heart, Percutaneous Approach (ICD-10-PCS; 2023-11-05 10:00)
DX: I21.4 Non-ST elevation (NSTEMI) myocardial infarction (principal); I16.0 Hypertensive urgency; I10 Essential (primary) hypertension; I25.10 Atherosclerotic heart disease of native coronary artery without angina pectoris; E78.2 Mixed hyperlipidemia; K21.9 Gastro-esophageal reflux disease without esophagitis; Z87.891 Personal history of nicotine dependence
CPT/HCPCS: 36415; 71046; 80053; 80061; 83036; 83690; 83735; 84484; 85025; 85610; 85730; 93005; 93306; 93458; 96365; 96366; 96375; 99285; A9270; C1725; C1769; C1874; C1887; C1894; C9600; G0378; J0360; J0583; J1644; J2250; J3010; J7030; J7040

== ENCOUNTER 2024-01-08 17:24 | Emergency (ER) | payer BC, SELFPAY ==
--- NOTE | ~2024-01-08 | XR_ITS ---
EXAMINATION: XR chest 1V portable DATE: 01/08/2024 21:48 INDICATION: Chest pain. TECHNIQUE: A single frontal view of the chest was obtained. COMPARISON: Chest 2 views 11/03/2023 FINDINGS: There is no pneumonia, pleural effusion, or pneumothorax. The heart size is normal. IMPRESSION: 1. No acute cardiopulmonary disease. Reviewed, dictated and finalized at location A.
[2024-01-08 17:26] VITALS: BP 161/72; PULSE 80; RESP 16; TEMP 36.3; O2SAT 99
[2024-01-08 17:57] VITALS: O2SAT 96
--- NOTE | 2024-01-08 17:57 | ECG_ITS ---
Test Date: 2024-01-08 17:59:25 Measurements Intervals [place] Rate: 75 P: 46 [place]: 152 QRS: 38 QRSD: 81 T: 60 QT: 378 QTc: 423 Interpretive Statements SINUS RHYTHM NONSPECIFIC T-WAVE ABNORMALITY- DIFFUSE LEADS BASELINE ARTIFACT- III, AVR, AVL, AVF, V4-V6 BORDERLINE ECG Compared to ECG 11/06/2023 10:57:22 NO SIGNIFICANT CHANGE Electronically Signed On 01-08-2024 19:26:24 CDT by Remberto Magaña D.O.
[2024-01-08 18:00] VITALS: PULSE 77
[2024-01-08 18:13] LABS: Basophils Percent Auto 0.6 % (0.2-1.2); Eosinophils Absolute Auto 0.3 K/mm3 (0-0.3); Eosinophils Percent Auto 4.5 % (0-4.4); Hematocrit 38.6 % (42.0-52.0); Hemoglobin 12.9 g/dL (14.0-18.0); Immature Granulocyte Absolute 0.02 K/mm3 (0.00-0.031); Immature Granulocyte Percent A 0.3 % (0-0.5); Lymphocytes Percent Auto 15.4 % (18.3-44.2); Mean Corpuscular HGB Conc 33.4 g/dl (32-36); Mean Corpuscular Hemoglobin 31.5 pg (26-34); Mean Corpuscular Volume 94.4 fl (80-100); Mean Platelet Volume 9.5 fl (7.4-10.4); Monocytes Absolute Auto 0.6 K/mm3 (0.1-0.6); Monocytes Percent Auto 8.3 % (2.6-8.5); Neutrophils Absolute Auto 5.1 K/mm3 (1.3-6.7); Neutrophils Percent Auto 70.9 % (45.5-73.1); Platelet Count Result 169 k/mm3 (150-375); Red Blood Count 4.09 M/mm3 (4.6-6.20); Red Cell Distribution Width 14.7 % (11.5-14.5); White Blood Count 7.1 K/mm3 (4.5-10.0)
[2024-01-08 18:25] LABS: Alanine Aminotransferase 37 U/L (6-50); Albumin Level 4.8 g/dL (3.5-5.1); Alkaline Phosphatase 93 U/L (38-126); Anion Gap 11 mmol/L (4-12); Aspartate Amino Transferase 38 U/L (17-59); Bilirubin,Total 2.2 mg/dL (0.2-1.3); Blood Urea Nitrogen 21 mg/dL (9-20); Calcium 9.4 mg/dL (8.4-10.2); Carbon Dioxide 25 mmol/L (22-30); Chloride 103 mmol/L (98-107); Estimated CRCL calculation 101 ml/min; Estimated Glomerular Filt Rate > 60; Glucose 99 mg/dL (65-110); Potassium 3.5 mmol/L (3.4-5.0); Sodium 139 mmol/L (137-145)
[2024-01-08 18:26] LABS: Partial Thromboplastin Time 34.8 Seconds (22.3-36.8)
[2024-01-08 18:36] LABS: Troponin I < 0.012 ng/mL (0.000-0.034)
--- NOTE | 2024-01-08 18:57 | ED.GENADULT ---
HPI - General Adult General Chief complaint: Shortness of Breath/Dyspnea Stated complaint: SOB, shoulder pain, recent stent placement Time Seen by Provider: 01/08/24 17:51 History of Present Illness HPI narrative: 58-year-old male presents emergency department for evaluation for generalized illness for the past few days and right shoulder pain. Patient does have a history of [place] and had a stent placed a few months ago at this hospital. Patient states he has been doing well and eating better. Patient reports began feeling ill about 2 days ago. Patient began having right shoulder pain that is worsened with deep inspiration and movement. Related Data Allergies Allergy/AdvReac Type Severity Reaction Status Date / Time No Known Allergies Allergy Mild Verified 11/03/23 15:49 Review of Systems Review of Systems: All systems reviewed & are unremarkable except as noted in HPI and below PMFSH Past Medical History Medical History Gastroesophageal reflux disease Hyperlipidemia Hypertension Surgical History Surgical History No pertinent past surgical history Family History Family History Father Brain tumor Polio Mother Hypertension Dementia Social History Social History Social History: Surrogate medical decision maker: Jessica Florian, spouse. Code status: Full code. Smoking packs per day: 2 Smoking cigarettes per day: 40.0 Years smoked: 25 Smoking pack-years: 50.00 Smoking status: Former smoker Tobacco type: cigarettes and cigars Second hand tobacco smoke exposure: Yes Smoking end date: 10/06/19 Alcohol intake: current Drinks per week: 18 Substance use: never Do You Feel Safe in your Home?: Yes Lack of Transportation: No Lack of Food: Never True Current Housing: I Have Housing Concerned About Future Housing: No Difficulty Paying Gas/Electric Bills: No Difficulty Paying for Meds: No Currently Unemployed: No Education: Decline to Answer Difficulty w/ Childcare or Family Care: No Living arrangements: with family Additional living arrangements comments: Lives with spouse in [place]. They have 4 children. 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 Spiritual care concerns: No Exam Narrative: APPEARANCE: Well appearing, no pain, no distress, well-nourished. HEAD: normocephalic, atraumatic. EYES: PERRLA/EOMI, conjunctivae clear. NOSE: Normal no drainage EARS:TMS clear with good light reflex. THROAT: Pharynx clear, no exudate. NECK: Supple. No adenopathy, no masses. RESPIRATORY: Airway patent, respirations nonlabored. Clear to auscultation bilaterally, no rales, rhonchi, wheezing. CARDIOVASCULAR: Regular rate and rhythm without murmurs rubs or gallops. Reproducible right-sided chest wall tenderness to palpation. ABDOMINAL: Soft, nontender, nondistended, normal bowel sounds MUSCULOSKELETAL: Moves all extremities. Strength/ROM intact, No edema, No calf tenderness. NEURO: Alert. Cranial nerves II through XII intact. Grossly intact SKIN: Warm, dry. Normal Color Course Vital Signs Vital signs: Vital Signs Temperature 97.4 F L 01/08/24 17:26 Pulse Rate 80 01/08/24 17:26 Respiratory Rate 16 01/08/24 17:26 Blood Pressure 161/72 H 01/08/24 17:26 Pulse Oximetry 99 01/08/24 17:26 Oxygen Delivery Room Air 01/08/24 17:26 Temperature 97.4 F L 01/08/24 17:26 Pulse Rate 77 01/08/24 18:00 Respiratory Rate 16 01/08/24 17:26 Blood Pressure 161/72 H 01/08/24 17:26 Pulse Oximetry 96 01/08/24 17:57 Oxygen Delivery Room Air 01/08/24 17:57 Medical Decision Making [facility] Narrative Medical decision making narrative: 58-year-old male presents emergency department for evaluation fo
[2024-01-08 20:00] LABS: Influenza A QL RT-PCR Negative (Negative); Influenza B QL RT-PCR Negative (Negative); RSV RNA, RT-PCR Negative (Negative); SARS-CoV-2 RNA PCR Negative (Negative)
--- NOTE | 2024-01-08 21:03 | ECG_ITS ---
Test Date: 2024-01-08 21:09:16 Measurements Intervals [place] Rate: 70 P: 35 [place]: 155 QRS: 50 QRSD: 87 T: 60 QT: 377 QTc: 407 Interpretive Statements SINUS RHYTHM NONSPECIFIC T-WAVE ABNORMALITY- DIFFUSE LEADS BASELINE ARTIFACT- II, III, AVR, AVL, AVF, V4-V5 BORDERLINE ECG Compared to ECG 01/08/2024 17:59:25 NO SIGNIFICANT CHANGE Electronically Signed On 01-09-2024 06:35:41 CDT by Remberto Magaña D.O.
[2024-01-08 21:26] LABS: Troponin I < 0.012 ng/mL (0.000-0.034)
[2024-01-08 22:15] VITALS: BP 156/93; PULSE 73; RESP 16; O2SAT 95
== END 2024-01-08 22:20 | disposition home or self-care (01) ==
PROVIDERS: Emergency Provider Emergency Medicine; PCP Physician Assistant
DX: R07.89 Other chest pain (principal); Z20.822 Contact with and (suspected) exposure to COVID-19; I10 Essential (primary) hypertension; I25.2 Old myocardial infarction; E78.5 Hyperlipidemia, unspecified; K21.9 Gastro-esophageal reflux disease without esophagitis; Z95.5 Presence of coronary angioplasty implant and graft; Z87.891 Personal history of nicotine dependence; Z79.02 Long term (current) use of antithrombotics/antiplatelets; Z79.899 Other long term (current) drug therapy; Z79.82 Long term (current) use of aspirin; R94.31 Abnormal electrocardiogram [ECG] [EKG]
CPT/HCPCS: 36415; 71045; 80053; 84484; 85025; 85380; 85610; 85730; 87637; 93005; 99284

== ENCOUNTER 2024-03-13 12:46 | Outpatient (CLI) | payer BC, SELFPAY | END 2024-03-13 12:47 | disposition home or self-care (01) | LOC: ANHPFT 12:48 | PROVIDERS: PCP Internal Medicine; Visit Provider Internal Medicine | DX: R06.02 Shortness of breath (principal) | CPT/HCPCS: 94060; 94726; 94729 ==

== ENCOUNTER 2024-07-22 13:58 | Emergency (ER) | payer BC, SELFPAY ==
--- NOTE | ~2024-07-22 | XR_ITS ---
XR chest 2V Ordering provider: Kostas Guevara PA-C History: 59 years Male with . shortness of breath . Comparison: January 08 2024 FINDINGS: MEDIASTINUM: The cardiac silhouette is not enlarged. LUNGS: No infiltrates, effusions or pneumothorax. OTHER: No free air under the diaphragm. IMPRESSION: No acute cardiopulmonary pathology. Reviewed, dictated and finalized at location A.
[2024-07-22 14:09] VITALS: BP 168/89; PULSE 100; RESP 18; TEMP 37.6; O2SAT 96
--- NOTE | 2024-07-22 15:00 | ED.URI ---
HPI - URI/Sore Throat General Chief Complaint: Upper Respiratory Infection Stated Complaint: Cough, shortness of breath, fever Focused HPI: GENERAL: Well-appearing, well-nourished, and in no acute distress. HEAD: Normocephalic, atraumatic. CHEST: Clear to auscultation. No respiratory distress. HEART: Regular rate and rhythm. NEURO: Alert and oriented x3. Patient screened in triage and initial orders placed. Additional care and disposition to be based upon diagnostic testing and treatment. Source: patient Mode of arrival: ambulatory Limitations: no limitations Related Data Home Medications ?Medication ?Instructions ?Recorded ?Confirmed ?Last Taken ?Type amlodipine 10 mg tablet 10 mg PO DAILY 01/30/24 01/30/24 Unknown History pantoprazole 40 mg tablet,delayed 40 mg PO QAM 01/30/24 01/30/24 Unknown History release Allergies Allergy/AdvReac Type Severity Reaction Status Date / Time No Known Allergies Allergy Mild Verified 07/22/24 13:59 PMFSH Past Medical History Medical History Gastroesophageal reflux disease Hyperlipidemia Hypertension Surgical History Surgical History No pertinent past surgical history Family History Family History Father Brain tumor Polio Mother Hypertension Dementia Social History Social History Social History: Surrogate medical decision maker: Jessica Florian, spouse. Code status: Full code. Smoking packs per day: 2 Smoking cigarettes per day: 40.0 Years smoked: 25 Smoking pack-years: 50.00 Smoking status: Former smoker Tobacco type: cigarettes and cigars Second hand tobacco smoke exposure: Yes Smoking end date: 10/06/19 Alcohol intake: current Drinks per week: 18 Substance use: never Do You Feel Safe in your Home?: Yes Lack of Transportation: No Lack of Food: Never True Current Housing: I Have Housing Concerned About Future Housing: No Difficulty Paying Gas/Electric Bills: No Difficulty Paying for Meds: No Currently Unemployed: No Education: Decline to Answer Difficulty w/ Childcare or Family Care: No Living arrangements: with family Additional living arrangements comments: Lives with spouse in [place]. They have 4 children. 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 care concerns: No Course Vital Signs Vital signs: Vital Signs Temperature 99.6 F 07/22/24 14:09 Pulse Rate 100 07/22/24 14:09 Respiratory Rate 18 07/22/24 14:09 Blood Pressure 168/89 H 07/22/24 14:09 Pulse Oximetry 96 07/22/24 14:09 Temperature 99.6 F 07/22/24 14:09 Pulse Rate 100 07/22/24 14:09 Respiratory Rate 18 07/22/24 14:09 Blood Pressure 168/89 H 07/22/24 14:09 Pulse Oximetry 96 07/22/24 14:09 Discharge Plan Discharge Patient Language: [place] Prescriptions: No Action amlodipine 10 mg tablet 10 mg PO DAILY pantoprazole 40 mg tablet,delayed release (DR/EC) 40 mg PO QAM mometasone 0.1 % cream 1 applic topical DAILY Qty: 15 1RF clopidogrel 75 mg Tablet 75 mg PO DAILY 30 Days Qty: 30 11RF atorvastatin 40 mg Tablet 80 mg PO DAILY Qty: 30 0RF carvedilol [Coreg] 12.5 mg Tablet 12.5 mg PO Q12HR Qty: 60 0RF nitroglycerin [Nitrostat] 0.4 mg Tablet, Sublingual 0.4 mg sublingual Q5MIN PRN (Reason: Chest Pain) Qty: 30 0RF aspirin [Children's Aspirin] 81 mg Tablet,Chewable 81 mg PO DAILY@0800 Qty: 30 0RF lisinopril 20 mg tablet 20 mg PO DAILY Qty: 90 1RF fluticasone propionate 110 mcg/actuation HFA aerosol inhaler 1 puff inhalation Q12H Qty: 12 2RF Rx Instructions: Rinse mouth after each use Follow-up/Referrals: Lane Kim DO [Primary Care Provider] -
--- NOTE | 2024-07-22 15:02 | ECG_ITS ---
Test Date: 2024-07-22 15:09:55 Measurements Intervals [place] Rate: 100 P: 34 [place]: 116 QRS: 23 QRSD: 77 T: 72 QT: 318 QTc: 412 Interpretive Statements SINUS TACHYCARDIA WITH SHORT CA INTERVAL WITH OCCASIONAL VENTRICULAR PREMATURE COMPLEXES ST DEVIATION AND MODERATE T-WAVE ABNORMALITY, CONSIDER LATERAL ISCHEMIA [-0.1+ mV T WAVE IN I/aVL/V5/V6] ABNORMAL ECG Electronically Signed On 07-23-2024 12:11:23 CDT by Adam Pinto M.D.
[2024-07-22 15:19] LABS: Basophils Percent Auto 0.4 % (0.2-1.2); Eosinophils Absolute Auto 0.1 K/mm3 (0-0.3); Hematocrit 41.5 % (42.0-52.0); Hemoglobin 13.8 g/dL (14.0-18.0); Immature Granulocyte Absolute 0.03 K/mm3 (0.00-0.031); Immature Granulocyte Percent A 0.4 % (0-0.5); Lymphocytes Percent Auto 7.3 % (18.3-44.2); Mean Corpuscular HGB Conc 33.3 g/dl (32-36); Mean Corpuscular Hemoglobin 30.3 pg (26-34); Mean Platelet Volume 9.7 fl (7.4-10.4); Monocytes Absolute Auto 0.8 K/mm3 (0.1-0.6); Monocytes Percent Auto 9.7 % (2.6-8.5); Neutrophils Absolute Auto 6.7 K/mm3 (1.3-6.7); Neutrophils Percent Auto 81.2 % (45.5-73.1); Platelet Count Result 164 k/mm3 (150-375); Red Blood Count 4.56 M/mm3 (4.6-6.20); Red Cell Distribution Width 13.7 % (11.5-14.5); White Blood Count 8.2 K/mm3 (4.5-10.0)
[2024-07-22 15:32] LABS: Alanine Aminotransferase 35 U/L (6-50); Albumin Level 4.8 g/dL (3.5-5.1); Alkaline Phosphatase 75 U/L (38-126); Anion Gap 15 mmol/L (4-12); Aspartate Amino Transferase 34 U/L (17-59); Bilirubin,Total 1.3 mg/dL (0.2-1.3); Blood Urea Nitrogen 10 mg/dL (9-20); Calcium 9.2 mg/dL (8.4-10.2); Carbon Dioxide 24 mmol/L (22-30); Chloride 96 mmol/L (98-107); Estimated CRCL calculation 63 ml/min; Estimated Glomerular Filt Rate > 60; Glucose 119 mg/dL (65-110); Potassium 3.6 mmol/L (3.4-5.0); Sodium 135 mmol/L (137-145)
--- OUTSIDE RECORDS SUMMARY | 2024-07-22 15:45 | XMS_ITS | Referral Summary ---
Author Organization [facility] Address [address] [place] [address] Care Team Providers Care Audio Technician Name Role Phone Thee Linares MD Primary Care Provider [phone]- [phone] Allergies No known active allergies Medications nitroglycerin (NITROSTAT) 0.4 mg SL tablet 11/07/2023 Active clopidogreL (PLAVIX) 75 mg tabletIndications :History of non-ST elevation myocardial infarction (NSTEMI) Take 1 tablet (75 mg total) by mouth daily 90 tablet 3 11/23/2023 Active atorvastatin (LIPITOR) 80 mg tabletIndications :Coronary artery disease involving [place] coronary artery of [place] heart without angina pectoris Take 1 tablet (80 mg total) by mouth daily 90 tablet 3 11/23/2023 Active lisinopriL (PRINIVIL,ZESTRIL ) 20 mg tabletIndications :Essential hypertension Take 1 tablet (20 mg total) by mouth daily 90 tablet 3 11/23/[address] (PROTONIX) 40 mg EC tabletIndications :Gastroesophageal reflux disease without esophagitis Take 1 tablet (40 mg total) by mouth daily 90 tablet 3 11/23/2023 11/23/19 25 Active carvediloL (COREG) 6.25 mg tabletIndications :Coronary artery disease involving [place] coronary artery of [place] heart without angina pectoris Take 1 tablet (6.25 mg total) by mouth 2 (two) times a day with meals 180 tablet 3 12/24/2023 12/24/19 25 Active amLODIPine (NORVASC) 10 mg tablet Take 1 tablet (10 mg total) by mouth daily 90 tablet 2 01/22/2024 01/22/20 25 Active Active Problems Problem Noted Date Diagnosed Date Status post insertion of drug eluting coronary a rtery stent 01/22/2024 Social History Tobacco Use Types Packs/Day Years Used Date Smoking Tobacco: Former Smokeless Tobacco: Never Tobacco Cessation:Counseling Given: Not Answered Personal Safety Answer Date Recorded Getting School Help Needed Not on file 10/26 Sex and Gender Information Value Date Recorded Sex Assigned at Not on file Legal Sex Male 12:11 PM CDT Gender Identity Not on file Sexual Orientation Not on file Last Filed Vital Signs Vital Sign Reading Time Taken Comments Blood Pressure 180/94 01/22/2024 2:49 PM CDT Pulse 73 01/22/2024 2:49 PM CDT Temperature 36.6 C (97.9 F) 08/30/2022 7:05 PM CDT Respiratory Rate 16 08/30/2022 7:05 PM CDT Oxygen Saturation 97% 01/22/2024 2:49 PM CDT Inhaled Oxygen Concentration - - Weight 100.7 kg (222 lb) 01/22/2024 2:49 PM CDT Height 172.7 cm (5' 8 ) 01/22/2024 2:49 PM CDT Body Mass Index 33.75 01/22/2024 2:49 PM CDT Plan of Treatment Not on file [place] Care Teams Audio Technician Relationship Specialty Start Date End Date Thee Linares MD [address] [address] PCP - General Internal Medicine 09/24/20
--- OUTSIDE RECORDS SUMMARY | 2024-07-22 15:45 | XMS_ITS | Clinical Summary ---
Author Organization [facility] Address [address] [place] [address] Care Team Providers Care Hospice Home Care Coordinator Name Role Phone Thee Linares MD Primary Care Provider [phone]- [phone] Allergies No known active allergies Medications nitroglycerin (NITROSTAT) 0.4 mg SL tablet 11/07/2023 Active clopidogreL (PLAVIX) 75 mg tabletIndications :History of non-ST elevation myocardial infarction (NSTEMI) Take 1 tablet (75 mg total) by mouth daily 90 tablet 3 11/23/2023 Active atorvastatin (LIPITOR) 80 mg tabletIndications :Coronary artery disease involving [place] coronary artery of [place] heart without angina pectoris Take 1 tablet [...] 6.25 mg tabletIndications :Coronary artery disease involving [place] coronary artery of [place] heart without angina pectoris Take 1 tablet [...] drug eluting coronary a rtery stent 01/22/2024 Family History Medical History Relation Name Comments Cancer Father Arthritis Sister Relation Name Status Comments Father Sister Social History Tobacco Use Types Packs/Day Years Used Date Smoking Tobacco: Former Smokeless Tobacco: Never Tobacco Cessation:Counseling Given: Not Answered Personal Safety Answer Date Recorded Getting School Help Needed Not on file 10/26 Sex and Gender Information Value Date Recorded Sex Assigned at Not on file Legal Sex Male 12:11 PM CDT Gender Identity Not on file Sexual Orientation Not on file Obstetrics History Last Filed Vital Signs Vital Sign Reading [...] 01/22/2024 2:49 PM CDT Plan of Treatment Health Maintenance Due Date Last Done Comments Colon Cancer Screening-Colonoscopy 1967 Depression Screening 1967 Hepatitis C Screening 1967 Prostate Cancer Screening-PSA 1967 DTaP/Tdap/Td Vaccine (1 - Tdap) 07/10/1978 Hepatitis B Screening 07/10/1985 Regular Well Visit/Exam 18-64 07/10/1985 Zoster Vaccine (1 of 2) 07/10/2017 Influenza Vaccine (#1) 2024 Pneumococcal vaccine <65 Aged Out No longer eligible based on patient's age to complete this topic [place] Care Teams Hospice Home Care Coordinator Relationship Specialty Start Date End Date Thee Linares MD [address] [address] PCP - General Internal Medicine 09/24/20
[2024-07-22 15:49] VITALS: BP 168/85; PULSE 94; RESP 19; O2SAT 96
[2024-07-22 16:46] LABS: Influenza A QL RT-PCR Positive (Negative); Influenza B QL RT-PCR Negative (Negative); RSV RNA, RT-PCR Negative (Negative); SARS-CoV-2 RNA PCR Negative (Negative)
--- OUTSIDE RECORDS SUMMARY | 2024-07-22 17:30 | XMS_ITS | Clinical Summary ---
Author Organization [facility] Address [address] [place] [address] Care Team Providers Care Manager Center Name Role Phone Thee Linares MD Primary Care Provider [phone]- [phone] Allergies No known active allergies Medications nitroglycerin (NITROSTAT) 0.4 mg SL tablet 11/07/2023 Active clopidogreL (PLAVIX) 75 mg tabletIndications :History of non-ST elevation myocardial infarction (NSTEMI) Take 1 tablet (75 mg total) by mouth daily 90 tablet 3 11/23/2023 Active atorvastatin (LIPITOR) 80 mg tabletIndications :Coronary artery disease involving [place] coronary artery of [place] heart without angina pectoris Take 1 tablet [...] 6.25 mg tabletIndications :Coronary artery disease involving [place] coronary artery of [place] heart without angina pectoris Take 1 tablet [...] [place] Care Teams Manager Center Relationship Specialty Start Date End Date Thee Linares MD [address] [address] PCP - General Internal Medicine 09/24/20
--- OUTSIDE RECORDS SUMMARY | 2024-07-22 17:30 | XMS_ITS | Referral Summary ---
Author Organization [facility] Address [address] [place] [address] Care Team Providers Care Store Protection Specialist Name Role Phone Thee Linares MD Primary Care Provider +1- [phone] Allergies No known active allergies Medications nitroglycerin (NITROSTAT) 0.4 mg SL tablet 11/07/2023 Active clopidogreL (PLAVIX) 75 mg tabletIndications :History of non-ST elevation myocardial infarction (NSTEMI) Take 1 tablet (75 mg total) by mouth daily 90 tablet 3 11/23/2023 Active atorvastatin (LIPITOR) 80 mg tabletIndications :Coronary artery disease involving [place] coronary artery of [place] heart without angina pectoris Take 1 tablet [...] 6.25 mg tabletIndications :Coronary artery disease involving [place] coronary artery of [place] heart without angina pectoris Take 1 tablet [...] [place] Care Teams Store Protection Specialist Relationship Specialty Start Date End Date Thee Linares MD [address] [address] PCP - General Internal Medicine 09/24/20
--- NOTE | 2024-07-22 18:08 | ED.GENADULT ---
HPI - General Adult General Chief complaint: Upper Respiratory Infection Stated complaint: Cough, shortness of breath, fever Time Seen by Provider: 07/22/24 16:48 Source: patient Mode of arrival: ambulatory Limitations: no limitations History of Present Illness HPI narrative: 59-year-old male present to the emergency department for evaluation for cough and congestion has been ongoing for the last 3 days. Patient does have a prior history of smoking but does not use oxygen at home. Patient states he is no longer a smoker. Patient began having symptoms on Sunday and worsened over the last few days. Related Data Home Medications ?Medication ?Instructions ?Recorded ?Confirmed ?Last Taken ?Type amlodipine 10 mg tablet 10 mg PO DAILY 01/30/24 01/30/24 Unknown History pantoprazole 40 mg tablet,delayed 40 mg PO QAM 01/30/24 01/30/24 Unknown History release Allergies Allergy/AdvReac Type Severity Reaction Status Date / Time No Known Allergies Allergy Mild Verified 07/22/24 13:59 Review of Systems Review of Systems: All systems reviewed & are unremarkable except as noted in HPI and below PMFSH Past Medical History Medical History Gastroesophageal reflux disease Hyperlipidemia Hypertension Surgical History Surgical History No pertinent past surgical history Family History Family History Father Brain tumor Polio Mother Hypertension Dementia Social History Social History Social History: Surrogate medical decision maker: Jessica Florian, spouse. Code status: Full code. Smoking packs per day: 2 Smoking cigarettes per day: 40.0 Years smoked: 25 Smoking pack-years: 50.00 Smoking status: Former smoker Tobacco type: cigarettes and cigars Second hand tobacco smoke exposure: Yes Smoking end date: 10/06/19 Alcohol intake: current Drinks per week: 18 Substance use: never Do You Feel Safe in your Home?: Yes Lack of Transportation: No Lack of Food: Never True Current Housing: I Have Housing Concerned About Future Housing: No Difficulty Paying Gas/Electric Bills: No Difficulty Paying for Meds: No Currently Unemployed: No Education: Decline to Answer Difficulty w/ Childcare or Family Care: No Living arrangements: with family Additional living arrangements comments: Lives with spouse in [place]. They have 4 children. 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 Spiritual care concerns: No Exam Narrative: APPEARANCE: Well appearing, no pain, no distress, well-nourished. HEAD: normocephalic, atraumatic. EYES: PERRLA/EOMI, conjunctivae clear. NOSE: Normal no drainage EARS:TMS clear with good light reflex. THROAT: Pharynx clear, no exudate. NECK: Supple. No adenopathy, no masses. RESPIRATORY: Small amount of x-ray wheeze CARDIOVASCULAR: Regular rate and rhythm without murmurs rubs or gallops. ABDOMINAL: Soft, nontender, nondistended, normal bowel sounds MUSCULOSKELETAL: Moves all extremities. Strength/ROM intact, No edema, No calf tenderness. NEURO: Alert. Cranial nerves II through XII intact. Good gait. Good coordination SKIN: Warm, dry. Normal Color Course Vital Signs Vital signs: Vital Signs Temperature 99.6 F 07/22/24 14:09 Pulse Rate 100 07/22/24 14:09 Respiratory Rate 18 07/22/24 14:09 Blood Pressure 168/89 H 07/22/24 14:09 Pulse Oximetry 96 07/22/24 14:09 Temperature 99.7 F H 07/22/24 18:22 Pulse Rate 91 07/22/24 18:37 Respiratory Rate 14 07/22/24 18:37 Blood Pressure 168/85 H 07/22/24 15:49 Pulse Oximetry 96 07/22/24 15:49 Medical Decision Making [facility] Narrative Medical decision making narrative: 59-year-old male presents emergency department for evaluation for worsening cough and congestion. Patient is currently afebrile with no leukocytosis hemoglobin of 13.8. Patient has no acute abnormalities on his CMP. Patient was positive for influenza A. Chest x-ray shows no acute cardiopulmonary abnormality. Patient was treated with breathing treatment emergency department. Patient will be discharged home on antibiotics due to his history of underlying lung disease. Patient family are comfortable with the plan for discharge and close follow-up. Differential Diagnosis Differential Diagnosis: COVID, RSV, influenza, pneumonia, COPD Vital Signs Vital Signs: Vital Signs Temperature 99.6 F 07/22/24 14:09 Pulse Rate 100 07/22/24 14:09 Respiratory Rate 18 07/22/24 14:09 Blood Pressure 168/89 H 07/22/24 14:09 Pulse Oximetry 96 07/22/24 14:09 Temperature 99.7 F H 07/22/24 18:22 Pulse Rate 91 07/22/24 18:37 Respiratory Rate 14 07/22/24 18:37 Blood Pressure 168/85 H 07/22/24 15:49 Pulse Oximetry 96 07/22/24 15:49 Lab Data Lab results reviewed: Yes I reviewed the patient's lab results. 07/22/24 15:10 07/22/24 15:10 Labs: Lab Results 07/22/24 Range/Units 15:10 WBC 8.2 (4.5-10.0) K/mm3 RBC 4.56 L (4.6-6.20) M/mm3 Hgb 13.8 L (14.0-18.0) g/dL Hct 41.5 L (42.0-52.0) % MCV 91.0 (80-100) fl MCH 30.3 (26-34) pg MCHC 33.3 (32-36) g/dl RDW 13.7 (11.5-14.5) % Plt Count 164 (150-375) k/mm3 MPV 9.7 (7.4-10.4) fl Immature Gran % (Auto) 0.4 (0-0.5) % Neut % (Auto) 81.2 H (45.5-73.1) % Lymph % (Auto) 7.3 L (18.3-44.2) % [place] % (Auto) 9.7 H (2.6-8.5) % Eos % (Auto) 1.0 (0-4.4) % Baso % (Auto) 0.4 (0.2-1.2) % Lymph # (Auto) 0.60 L (0.9-3.2) K/mm3 [place] # (Auto) 0.8 H (0.1-0.6) K/mm3 Eos # (Auto) 0.1 (0-0.3) K/mm3 Baso # (Auto) 0.0 (0.0-0.1) K/mm3 Abs Immat Gran (auto) 0.03 (0.00-0.031) K/mm3 Absolute Neuts (auto) 6.7 (1.3-6.7) K/mm3 Absolute Nucleated RBC 0.000 (0.0-0.012) K/mm3 Nucleated RBC % 0.0 (0.0-0.2) % Sodium 135 L (137-145) mmol/L Potassium 3.6 (3.4-5.0) mmol/L Chloride 96 L (98-107) mmol/L Carbon Dioxide 24 (22-30) mmol/L Anion Gap 15 H (4-12) mmol/L BUN 10 D (9-20) mg/dL Creatinine 1.03 (0.7-1.3) mg/dL Estim Creat Clear Calc 63 ml/min Estimated GFR > 60 (59 - ) Glucose 119 H (65-110) mg/dL Calcium 9.2 (8.4-10.2) mg/dL Total Bilirubin 1.3 (0.2-1.3) mg/dL AST 34 (17-59) U/L ALT 35 (6-50) U/L Alkaline Phosphatase 75 (38-126) U/L Total Protein 8.0 (6.3-8.2) g/dL Albumin 4.8 (3.5-5.1) g/dL Influenza A (RT-PCR) Positive A (Negative) Influenza B (RT-PCR) Negative (Negative) RSV (RT-PCR) Negative (Negative) SARS-CoV-2 RNA (RT-PCR) Negative (Negative) Imaging Data Radiologist's impression: Impressions Chest X-Ray 07/22/24 15:54 IMPRESSION: No acute cardiopulmonary pathology. ECG Data EKG #1: EKG Interpretation: tachycardia, sinus rhythm, no ectopy, non-specific ST changes, normal QT and NL axis Discharge Plan Discharge Clinical Impression: Influenza A Patient Disposition: Home, Self-Care Condition: Stable Instructions: Antibiotic Form, Viral Syndrome (ED) Additional Instructions: Albuterol inhaler for shortness of breath, Tessalon Perles for cough. Tylenol for fever body aches. Have close follow-up with your primary care physician. Patient Language: [place] Prescriptions: New benzonatate 100 mg capsule 100 mg PO TID PRN (Reason: cough) Qty: 14 0RF albuterol sulfate 90 mcg/actuation HFA aerosol inhaler 1 puff inhalation QID Qty: 6.7 0RF No Action amlodipine 10 mg tablet 10 mg PO DAILY pantoprazole 40 mg tablet,delayed release (DR/EC) 40 mg PO QAM mometasone 0.1 % cream 1 applic topical DAILY Qty: 15 1RF clopidogrel 75 mg Tablet 75 mg PO DAILY 30 Days Qty: 30 11RF atorvastatin 40 mg Tablet 80 mg PO DAILY Qty: 30 0RF carvedilol [Coreg] 12.5 mg Tablet 12.5 mg PO Q12HR Qty: 60 0RF nitroglycerin [Nitrostat] 0.4 mg Tablet, Sublingual 0.4 mg sublingual Q5MIN PRN (Reason: Chest Pain) Qty: 30 0RF aspirin [Children's Aspirin] 81 mg Tablet,Chewable 81 mg PO DAILY@0800 Qty: 30 0RF lisinopril 20 mg tablet 20 mg PO DAILY Qty: 90 1RF fluticasone propionate 110 mcg/actuation HFA aerosol inhaler 1 puff inhalation Q12H Qty: 12 2RF Rx Instructions: Rinse mouth after each use Follow-up/Referrals: Lane Kim DO [Primary Care Provider] -
[2024-07-22 18:18] VITALS: PULSE 89; RESP 14
[2024-07-22] MEDS: ALBUTEROL SULFATE NEB 2.5 MG/3 ML INH 5 MG INHALATION (18:18)
[2024-07-22 18:22] VITALS: TEMP 37.6
[2024-07-22 18:37] VITALS: PULSE 91; RESP 14
[2024-07-22] MEDS: BENZONATATE 100 MG CAPSULE 200 MG PO (19:06)
== END 2024-07-22 19:14 | disposition home or self-care (01) ==
PROVIDERS: Physician Assistant; Student in an Organized Health Care Education/Training Program; Emergency Provider Emergency Medicine; PCP Internal Medicine
DX: J10.1 Influenza due to other identified influenza virus with other respiratory manifestations (principal); K21.9 Gastro-esophageal reflux disease without esophagitis; E78.5 Hyperlipidemia, unspecified; I10 Essential (primary) hypertension; R94.31 Abnormal electrocardiogram [ECG] [EKG]
CPT/HCPCS: 36415; 71046; 80053; 85025; 87637; 93005; 94640; 99283; A9270

== ENCOUNTER 2025-03-14 17:29 | Emergency (ER) | payer BC, SELFPAY ==
--- NOTE | 2025-03-14 17:36 | ED.SKABFB ---
HPI - Skin/Abscess/Foreign Bdy General Chief complaint: Skin/Abscess/Foreign Body Stated complaint: Insect Bite Time Seen by Provider: 03/14/25 17:36 Source: patient and RN notes reviewed Mode of arrival: ambulatory Limitations: no limitations History of Present Illness HPI narrative: 59-year-old male presents with concern for insect bite on his right leg. He reports he noticed a pimple size papule about 2 weeks ago reports since then it has become swollen, red, painful. He denies drainage. He denies fever, body aches, chills, sweats, malaise. complaint: insect bite/sting Related Data Home Medications ?Medication ?Instructions ?Recorded ?Confirmed ?Last Taken ?Type amlodipine 10 mg tablet 10 mg PO DAILY 01/30/24 02/24/25 Unknown History pantoprazole 40 mg tablet,delayed 40 mg PO QAM 01/30/24 02/24/25 Unknown History release Allergies Allergy/AdvReac Type Severity Reaction Status Date / Time No Known Allergies Allergy Mild Verified 03/14/25 17:39 Review of Systems Review of Systems: CONSTITUTIONAL: Denies malaise, chills, sweats, or fever. SKIN: Reports painful insect bite on his right lower leg MUSCULOSKELETAL: Denies myalgia. All systems reviewed & are unremarkable except as noted in HPI and below PMFSH Past Medical History Medical History (Updated 03/14/25 @ 17:44 by Jennifer Weber APRN) Hypertension Gastroesophageal reflux disease Hyperlipidemia Surgical History Surgical History No pertinent past surgical history Family History Family History Father Brain tumor Polio Mother Hypertension Dementia Social History Social History Social History: Surrogate medical decision maker: Jessica Florian, spouse. Code status: Full code. Smoking packs per day: 2 Smoking cigarettes per day: 40.0 Years smoked: 25 Smoking pack-years: 50.00 Tobacco type: cigarettes and cigars Second hand tobacco smoke exposure: Yes Smoking end date: 10/06/19 Alcohol intake: current Drinks per week: 18 Substance use: never Do You Feel Safe in your Home?: Yes Lack of Transportation: No Lack of Food: Never True Current Housing: I Have Housing Concerned About Future Housing: No Difficulty Paying Gas/Electric Bills: No Difficulty Paying for Meds: No Currently Unemployed: No Education: Decline to Answer Difficulty w/ Childcare or Family Care: No Living arrangements: with family Additional living arrangements comments: Lives with spouse in [place]. They have 4 children. 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 Spiritual care concerns: No Comments At time of signature, agree with nursing past medical, surgical, social and family history. There is no relevant family history pertinent to the presenting complaint Exam Narrative: GENERAL: Well-appearing, well-nourished, and in no acute distress. HEAD: Normocephalic, atraumatic. EYES: PERRLA, conjunctivae clear, and EOMI. ENT: Mucous membranes moist. Oropharynx without edema, erythema or lesions. NECK: Supple. No lymphadenopathy CHEST: Clear to auscultation. No respiratory distress. HEART: Regular rate and rhythm. SKIN: Warm, dry. Approximately 4 cm area of erythema, induration, warmth with raised papule in the center with a dark colored Center, no fluctuation NEURO: Alert and oriented x3. PSYCH: Normal mood and affect Course Course Emergency Course: Patient is aware of diagnosis, understands and agrees to treatment plan. Anticipatory guidance given. Patient agrees to follow-up as directed and is aware of reasons to seek care at the emergency department. Portions of this record may have been created with voice recognition software Level of Care: Express Care Visit Vital Signs Vital signs: Reviewed. MDM - Skin/Abscess/Foreign Bdy MDM Narrative Medical decision making narrative: I evaluated this in the express care. History is obtained from patient who is an independent historian and physical exam was performed.? Available medical records were reviewed. ? Exam findings and relevant testing show no acute concerns or changes; patient is non-toxic appearing and is in no distress. Does not appear at this time to be erythema multiforme, bullous, SJS, TEN; no evidence at this time to suggest RMSF, NSTI, endocarditis or Lyme disease; patient looks well, nontoxic and is tolerating oral intake; no neurologic signs or symptoms; no headache, photophobia or neck pain; afebrile.? Patient does not have history of of penetrating trauma, laceration, blunt trauma, recent surgery, immunosuppression, malignancy, obesity, alcoholism, corticosteroid use.? Discussed the importance of follow-up, patient agrees; question, cellulitis versus necrotizing soft tissue infection versus abscess.?? Patient is appropriate for outpatient treatment and follow-up. Critical Care Time Critical Care Time Critical Care Time: No Discharge Plan Discharge Clinical Impression: Insect bite of right lower leg with infection Patient Disposition: Home Condition: Stable Instructions: Antibiotic Form, Cellulitis (ED) Additional Instructions: Please follow up with your Primary Care Doctor within 48-72 hours - call for an appointment. Rest and elevate affected area; apply moist heat 3-4 times daily for 10-15 minutes. Take Motrin 600mg every 8 hours with food for pain. Please take Antibiotics as directed. If you experience any worsening redness, swelling, streaking (red lines), fever or chills please go to the ER Patient Language: Samoan Prescriptions: New amoxicillin-pot clavulanate 875-125 mg tablet 1 tablet PO Q12H 10 Days Qty: 20 0RF No Action amlodipine 10 mg tablet 10 mg PO DAILY pantoprazole 40 mg tablet,delayed release (DR/EC) 40 mg PO QAM mometasone 0.1 % cream 1 applic topical DAILY Qty: 15 1RF prednisone 5 mg tablet 5 mg PO DIRECTED Qty: 21 0RF Rx Instructions: Six po today, decreasing dose by one daily until gone clopidogrel 75 mg Tablet 75 mg PO DAILY 30 Days Qty: 30 11RF atorvastatin 40 mg Tablet 80 mg PO DAILY Qty: 30 0RF carvedilol [Coreg] 12.5 mg Tablet 12.5 mg PO Q12HR Qty: 60 0RF nitroglycerin [Nitrostat] 0.4 mg Tablet, Sublingual 0.4 mg sublingual Q5MIN PRN (Reason: Chest Pain) Qty: 30 0RF aspirin [Children's Aspirin] 81 mg Tablet,Chewable 81 mg PO DAILY@0800 Qty: 30 0RF albuterol sulfate 90 mcg/actuation HFA aerosol inhaler 1 puff inhalation QID Qty: 6.7 0RF lisinopril 20 mg tablet 20 mg PO DAILY Qty: 90 1RF Asmanex HFA 50 mcg/actuation HFA aerosol inhaler 2 puff inhalation BID Qty: 13 5RF Follow-up/Referrals: Lane Kim DO [Primary Care Provider, Internal Medicine] Time of Disposition: 17:46
[2025-03-14 17:37] VITALS: BP 179/85; PULSE 86; RESP 18; TEMP 36.5; O2SAT 97
== END 2025-03-14 17:49 | disposition home or self-care (01) ==
PROVIDERS: Emergency Provider Nurse Practitioner; PCP Internal Medicine
DX: S80.861A Insect bite (nonvenomous), right lower leg, initial encounter (principal); L08.9 Local infection of the skin and subcutaneous tissue, unspecified; W57.XXXA Bitten or stung by nonvenomous insect and other nonvenomous arthropods, initial encounter; I10 Essential (primary) hypertension; K21.9 Gastro-esophageal reflux disease without esophagitis; E78.5 Hyperlipidemia, unspecified; Z87.891 Personal history of nicotine dependence
CPT/HCPCS: 99213; G0463